=== PATIENT | male | born 1945 | race Caucasian/White ===

== ENCOUNTER 2016-12-31 12:02 | Inpatient (IN) | payer OTHER ==
[~2016-12-31] VITALS: Ht 172.7 cm; Wt 105.7 kg
--- NOTE | ~2016-12-31 | H ---
[facility] [place] [address] HISTORY AND PHYSICAL Name: CARMELO FUNG Room #: 305-P ADM IN M.R.#: [id number] Admission: 12/31/16 Attend Phys: Olvin Morelos Discharge: Date of : 45 Report #: [id number] THIS REPORT FOR: //name// CC: Yves Gonzales DATE OF SERVICE: 12/31/2016 CHIEF COMPLAINT: Testicular pain. HISTORY OF PRESENT ILLNESS: The patient is a 71-year-old gentleman who came in to the Emergency Room complaining of lower abdomen, pelvic and scrotal pain. Symptoms began about 1 day prior to admission and he felt symptoms were worse with a bowel movement or urination. He really was not having any fever, chills or nausea, vomiting. Through the Emergency Room evaluation, he was diagnosed with an acute appendicitis. He has been treated with IV antibiotics overnight and assessed by Dr. Robert as well as Dr. Graham regarding his scrotal pain. Dr. Rodríguez knows him well and has been following too. PAST MEDICAL HISTORY: Significant for cardiac arrest in 08/2015 with complicated acute renal failure, hyperkalemia, pulseless electrical activity. He required dialysis temporarily but that has cleared and now has been discontinued. He also has a history of paroxysmal atrial fibrillation and uses anticoagulation of Savaysa. He also has a history of diabetes type 2, osteoarthritis, lymphedema, prostate cancer treated previously with radiation and Lupron, gastric reflux. PAST SURGICAL HISTORY: As above. FAMILY HISTORY: There is no report of coronary artery disease. SOCIAL HISTORY: No chronic alcohol or tobacco use. He is , lives with his , he is retired. ALLERGIES: None. MEDICATIONS: Savaysa 30 mg, diltiazem 180 mg, aspirin 81 mg, atenolol 50 mg, flecainide 150 mg b.i.d., digoxin 0.125 mg, pravastatin 40 mg, Zantac 150 mg, Colace, Lasix 40 mg, Rapaflo 8 mg, Levemir 20 units at bedtime. REVIEW OF SYSTEMS: He denies headache, chest pain, shortness of breath, abdominal pain, nausea, vomiting, diarrhea, constipation, dysuria, syncope. PHYSICAL EXAMINATION: VITAL SIGNS: Temperature 36.6, pulse 51, respiration 20, blood pressure 132/53, O2 sat 95% on room air. GENERAL: He is awake and alert, in no distress. [address] [address] HISTORY AND PHYSICAL Name: CARMELO FUNG Room #: 305-P [facility] IN .R.#: [id number] Admission: 12/31/16 Attend Phys: Olvin Morelos Discharge: Date of : 45 Report #: [id number] HEAD AND NECK: Unremarkable. LUNGS: Clear. HEART: Irregular. ABDOMEN: Soft, normoactive bowel sounds. EXTREMITIES: No edema. NEUROLOGIC: Motor strength 5/5 throughout. He is alert and oriented. LABORATORY REVIEW: With normal white count, initial creatinine from ER is 1.4. Urinalysis was negative. Scrotal ultrasound was negative. CT abdomen and pelvis revealed acute appendicitis and colonic diverticulosis without inflammation. ASSESSMENT: 1. Acute diverticulitis. 2. Paroxysmal atrial fibrillation. 3. Chronic kidney disease, stage 3. 4. Diabetes type 2. PLAN: For now, he is being treated conservatively with IV antibiotics. General Surgery team is following him and developed a plan as he goes forward, but he may take an approach of IV antibiotic treatment at this time. Follow up lab data is pending today as well as tomorrow. <ELECTRONICALLY SIGNED> By: Nando Welch MD 01/01/17 1432 0829 1014 Nando Welch MD /nt
--- NOTE | ~2016-12-31 | HC ---
[facility] [place] [address] CONSULTATION Name: CARMELO FUNG Room #: 305-P [facility] IN M.R.#: [id number] Admission: 12/31/16 Attend Phys: Olvin Morelos Discharge: 01/03/17 Date of : 45 Report #: [id number] THIS REPORT FOR: //name// CC: Yves Gonzales HISTORY OF PRESENT ILLNESS: The patient is a 71-year-old male. He is known to me, followed by Dr. Pelon Gonzales. I saw him last fall, he has history of paroxysmal atrial fibrillation, longstanding. He did have an episode a couple of years ago with actually acute renal failure, hyperkalemia, PEA and temporary dialysis. Some of his care has at the [place]. Admitted today with some recurrent scrotal pain, pelvic pain and worse with bowel movements, urination. [place] to have an acute appendicitis. Cardiac arrest was back in 08/2015 due to the acute renal failure, this is resolved. Should clear up to clarify. He has been seen by hospitalist and Dr. Robert of surgery. He is anticoagulated on a novel agent Savaysa last dose was this morning. He denies chest pain or anginal complaints. He does not have documented coronary disease risk factors, however. He has been compliant with his medications. He has had no bleeding issues. MEDICATIONS: Have been disease, Savaysa 30 mg, diltiazem 180, baby aspirin, atenolol 50, flecainide 150 b.i.d., digoxin 0.125 and pravastatin 40, ranitidine, Colace, Lasix 40 and Rapaflo 8, also on some Levemir. PAST MEDICAL HISTORY: Positive for the PEA, cardiac arrest, diabetes, hypertension, chronic kidney disease, hypercholesterolemia, DJD, Agent Krebs and hepatitis A, history of lymphedema[facility], history of prostate cancer with prior radiation and Lupron, reflux, nasal reconstruction. FAMILY HISTORY: Both parents live in to their 80s, no premature coronary disease. SOCIAL HISTORY: Never tobacco user, social alcohol. Moderate caffeine. Children are alive and well. He is . He is retired. ALLERGIES: No known drug allergies. REVIEW OF SYSTEMS: Negative except for stated above and some nocturia with this recent intermittent constipation. PHYSICAL EXAMINATION: GENERAL: Pleasant, alert. VITAL SIGNS: Blood pressure 140/66, pulse is 65-70 and regular. HEENT: Eyes reveal xanthelasmas. Pharynx is clear. NECK: Shows preserved upstrokes without JVD or bruits. LUNGS: Clear. CARDIOVASCULAR: Regular rate and rhythm, S1, S2. There is no significant murmur or gallop. ABDOMEN: Tender in the right lower and midepigastric area. There is some [facility] [address] [place] [place] [address] CONSULTATION Name: CARMELO FUNG Room #: 305-P [facility] IN M.R.#: [id number] Admission: 12/31/16 Attend Phys: Olvin Morelos Discharge: 01/03/17 Date of : 45 Report #: [id number] questionable rebound. Bowel sounds are noted. There is some mild guarding. EXTREMITIES: Reveal some chronic lymphedema, I cannot palpate the distal pulses. NEUROLOGIC: Intact, nonfocal. MUSCULOSKELETAL: gross joint deformity. Generalized arthritic changes. LABORATORY DATA: H and H is 14 and 42, white cell count 8.3. Potassium 3.9 and creatinine 1.4. UA was negative. CT findings of the abdomen CT consistent with acute appendicitis, no abscess or free air. RECOMMENDATIONS: I agree with holding the novel agent. He is currently maintaining sinus rhythm. Could proceed within 24 hours of surgery if necessary. I believe that it will be treated with antibiotics and then possibly surgery with later this hospitalization or later date. His cardiovascular status is stable. Also, have a relatively recent nuclear stress test from the office, which was last year that was negative for ischemia. We will discuss with Surgery in the a.m. okay to proceed on anytime after 24 hours and from a novel agent so tomorrow afternoon, Wednesday afternoon or Wednesday morning would be fine. We will discuss with Dr. Robert the morning. Thank you for asking me to assist in this patient. <ELECTRONICALLY SIGNED> By: Rex Rodríguez MD, FACC 01/05/17 0921 [id number] 0720 Rex Rodríguez MD, FACC /nt
--- NOTE | ~2016-12-31 | HC ---
[facility] [place] [address] CONSULTATION Name: CARMELO FUNG Room #: 305-P ADM IN M.R.#: [id number] Admission: 12/31/16 Attend Phys: Olvin Morelos Discharge: Date of : 45 Report #: [id number] THIS REPORT FOR: //name// CC: Yves Gonzales DATE OF SERVICE: 12/31/2016 CHIEF COMPLAINT: Testicular pain. HISTORY OF PRESENT ILLNESS: The patient is a very pleasant 71-year-old male with history of lower abdominal and testicular pain, which seemed to be worsened with attempting to void. He reports that over the past week his lower abdomen had been uncomfortable, although not excruciating, but then over the past 24 hours he developed significant pain in the scrotum. He has a history of prostate cancer status post radiation therapy. He also has a penile implant with reservoir in place. He has extensive past medical history including diabetes mellitus, atrial fibrillation, previous cardiac arrest on Savaysa 30 mg daily. He last took this medication in the morning of December 31. In the Emergency Department, he was noted to have a normal white blood cell count, although a left shift of 77% was noted. CT scan of the abdomen and pelvis showed an enlarged inflamed appendix; no free air or free fluid was noted. The prostate was noted to be mildly enlarged. Urinalysis was essentially normal, although there was trace blood. He also underwent a scrotal ultrasound, which was unremarkable. General Surgery was consulted for appendicitis. PAST MEDICAL HISTORY: Positive for cardiac arrest in August 2015 with acute renal failure requiring dialysis for a period of time, hypokalemia at that time, pulseless electrical activity, history of paroxysmal atrial fibrillation on Savaysa, history of type 2 diabetes, although he does require insulin injections, osteoarthritis, lower extremity lymphedema, prostate cancer treated with radiation therapy and previous Lupron, history of gastroesophageal reflux disease. PAST SURGICAL HISTORY: As described above, no prior abdominal operations other than the penile implant. FAMILY HISTORY: Negative for coronary artery disease. SOCIAL HISTORY: Negative for tobacco, ETOH or drug use. ALLERGIES: No known drug allergies. MEDICATIONS: At home include diltiazem, aspirin, atenolol, Savaysa, flecainide, digoxin, pravastatin, Zantac, Colace, Lasix, Rapaflo, and Levemir. REVIEW OF SYSTEMS: CONSTITUTIONAL: Negative for fevers, chills or unwanted [facility] [address] [place] [address] CONSULTATION Name: CARMELO FUNG Room #: 305-P [facility] IN M.R.#: [id number] Admission: 12/31/16 Attend Phys: Olvin Morelos Discharge: Date of : 45 Report #: [id number] weight loss. HEENT: No dysphagia or odynophagia. OCULAR: No diplopia or visual change. RESPIRATORY: No productive cough, no hemoptysis. CARDIOVASCULAR: No chest pain, no palpitations, history of previous GA on Savaysa. GASTROINTESTINAL: Positive for lower abdominal pain, worse with voiding. GENITOURINARY: Positive for hesitancy and scrotal pain with attempting to void. MUSCULOSKELETAL: No back pain. Positive for lower extremity swelling consistent with known diagnosis of lymphedema with compression stockings in place. CUTANEOUS: Positive for easy bruising consistent with Savaysa anticoagulation. NEUROLOGIC: No focal weakness or numbness. PHYSICAL EXAMINATION: GENERAL: The patient is afebrile in no acute distress. He is normotensive. He does give appropriate history and he is in good spirits. HEENT: Head is atraumatic and normocephalic. Pupils are equally round and reactive. No icterus is appreciated. NECK: Supple. Oral cavity is clear. LUNGS: Clear to auscultation. HEART: Regular without murmur. No jugular venous distention. ABDOMEN: Soft and tender on deep palpation in the right lower quadrant. He did have some voluntary guarding upon aggressive deep palpation. No peritonitis per se. No abdominal surgical scars or hernias appreciated. EXTREMITIES: With lower extremity edema and compression stockings in place, consistent with known diagnosis of lymphedema. The patient moves all extremities without focal weakness or numbness. PSYCHIATRIC: Normal mood and affect. LABORATORY DATA: Reviewed. Upon admission in the Emergency Department yesterday, complete blood count showed a white count of 8.3, hemoglobin of 14.8, platelets of 144. Basic metabolic profile of 136, potassium 3.9, BUN of 21, creatinine 1.4. Testicular ultrasound in the Emergency Department showed normal scrotal ultrasound, symmetric blood flow to each testicle, epididymis symmetric bilateral. INR of 1.2. Chest x-ray showed no acute cardiopulmonary abnormalities. CT scan of the abdomen and pelvis without contrast reviewed with Radiology. This demonstrated mild bilateral perinephric fat stranding; small bowel was unremarkable, dilated, thick walled appendix measuring up to 6 cm in length and 2.5 cm in width maximally. Inflammatory stranding was noted. No free air or free fluid appreciated. Penile pump and reservoir noted. Prostrate gland mildly enlarged. No inguinal hernias, multiple level degenerative spinal joint disease. IMPRESSION AND PLAN: 1. 71-year-old male patient with extensive past medical history and previous cardiac arrest in August of 2015 on chronic Savaysa therapy as well as aspirin therapy. No shannon peritonitis at this time and no sign of sepsis or septic shock. Based upon history, this process appears to have been ongoing for 5 to 6 days prior to admission and there does not appear to be periappendiceal fluid or air, which would indicate perforation. Given the patient's anticoagulation status, he would not be an optimal surgical candidate and would be at significant risk for perioperative hemorrhage. This [facility] [address] [place] [address] CONSULTATION Name: ANTONIETACARMELO VILLARREAL Room #: 305-P ADM IN M.R.#: [id number] Admission: 12/31/16 Attend Phys: Olvin Morelos Discharge: Date of : 45 Report #: [id number] is especially true in light of the multiple day course of this process, which would increase inflammation and early adhesions formation in the operative field. 2. At this time, we will begin IV antibiotic therapy with Zosyn and Flagyl. We will hold patient's Savaysa therapy per chance his condition worsens and he requires urgent appendectomy. 3. We will continue to follow the patient closely with serial abdominal examinations. At the minimum, the patient will need to wait 48 hours up from his last dose of Savaysa, which was morning prior to operative intervention. 4. It is possible that antibiotic therapy alone may be sufficient to treat this patient, as he already appears to be mounting a good immune response to his appendicitis. 5. Should the patient's pain and symptoms resolve with antibiotic therapy alone, will discuss at a later date whether interval appendectomy would be applicable for this patient, given his extensive medical history. Consultation very much appreciated. We will continue to follow closely with serial abdominal examinations and make further recommendations based upon his clinical status, laboratory and radiographic findings. <ELECTRONICALLY SIGNED> By: Bruce Robert MD 01/02/17 1113 1603 2342 Bruce Robert MD /nt
[~2016-12-31 12:02] MED LIST: ASPIRIN EC81 M1 PO; BUDEPRION SR150 MG PO; BUPROPION HCL150 MG PO; CARDIZEM CD180 MG PO; FLECAINIDE ACET50 M1 PO; FLOMAX0.4 MG PO; HCTZ PO; HYDROCODON-ACE1 EACH PO; HYTRIN10 MG PO; LANOXIN 0.120.125 M1 PO; LANTUS SUBQ; LASIX 40 MG TAB40 M2 PO; LEVEMIR SUBQ; LISINOPRIL PO; LORTAB 5-500 T1 EAC1 PO; MIRALAX17 GM PO; NOVOLOG100 UNIT/1 SUBQ; OMEPRAZOLE10 MG PO; PRAVACHOL PO; PRAVACHOL40 MG PO; RANITIDINE PO; SAVAYSA30 MG PO; SENNA8.6 MG PO; TENORMIN25 MG PO; TENORMIN50 MG PO; ZANTAC 150MG T150 MG PO; ZOCOR40 MG PO; [UNRECOGNIZED DRUG - CODE]
[2016-12-31 12:07] VITALS: BP 146/60
[2016-12-31] MEDS ORDERED: COLACE100 MG PO (12:12)
[2016-12-31] MEDS ORDERED: LASIX 40 MG TAB40 M2 PO (12:13)
[2016-12-31] MEDS ORDERED: FLOVENT HFA 1110 MCG INH (12:13)
[2016-12-31] MEDS ORDERED: RAPAFLO8 MG PO (12:16)
[2016-12-31 12:28] LABS: URINE BILIRUBIN NEGATIVE (Negative); URINE BLOOD TRACE (Negative); URINE COLOR YELLOW; URINE GLUCOSE-RANDOM* NEGATIVE (Negative); URINE KETONES NEGATIVE (Negative); URINE NITRITE NEGATIVE (Negative); URINE PROTEIN (DIPSTICK) NEGATIVE (Negative); URINE SPECIFIC GRAVITY 1.015 (1.003-1.035); URINE UROBILINOGEN 0.2 E.U./dl (0.2-1.0)
[2016-12-31 12:55] LABS: ABSOLUTE NEUTROPHILS 6.4 thou/uL (1.4-8.2); BASOPHILS 0.5 % (0.0-2.0); EOSINOPHILS 1.7 % (0.0-3.0); HEMATOCRIT 42.3 % (42.0-52.0); HEMOGLOBIN 14.8 gm/dL (14.0-18.0); MCH 27.1 pg (26.0-34.0); MCV 77.5 fL (80.0-100.0); MONOCYTES 11.1 % (1.0-8.0); PLATELET COUNT 144 thou/uL (150-400); POLYS 76.7 % (36.0-66.0); RBC 5.46 mil/uL (4.50-6.00); RDW 15.5 % (10.5-14.5); WBC 8.3 thou/uL (4.0-11.0)
[2016-12-31 12:58] LABS: MANUAL DIFF NO
[2016-12-31 13:06] LABS: CALCIUM 7.9 mg/dL (8.5-10.1); CREATININE 1.4 mg/dL (0.7-1.3); POTASSIUM 3.9 mmol/L (3.5-5.1)
[2016-12-31 14:32] LABS: INR 1.2; PROTIME 12.4 Seconds (9.3-11.4)
[2016-12-31 15:00] VITALS: BP 130/49
[2016-12-31 15:28] VITALS: BP 136/69
[2016-12-31 17:03] VITALS: BP 136/69
[2016-12-31 20:00] VITALS: BP 146/56
[2017-01-01] VITALS: BP 144/66
[2017-01-01 04:00] VITALS: BP 131/63
[2017-01-01 08:20] VITALS: BP 122/53
[2017-01-01 09:06] LABS: HEMATOCRIT 44.5 % (42.0-52.0); HEMOGLOBIN 14.9 gm/dL (14.0-18.0); MCH 26.3 pg (26.0-34.0); MCHC 33.4 g/dL (28.0-37.0); MCV 78.8 fL (80.0-100.0); RBC 5.64 mil/uL (4.50-6.00); RDW 15.9 % (10.5-14.5); WBC 8.6 thou/uL (4.0-11.0)
[2017-01-01 09:18] LABS: CALCIUM 7.9 mg/dL (8.5-10.1); CREATININE 1.3 mg/dL (0.7-1.3); MAGNESIUM 1.8 mg/dL (1.8-2.4); PHOSPHORUS 3.1 mg/dL (2.5-4.9); POTASSIUM 4.4 mmol/L (3.5-5.1)
[2017-01-01 15:50] VITALS: BP 122/52
[2017-01-01 20:25] VITALS: BP 140/54
[2017-01-02 04:26] VITALS: BP 143/62
[2017-01-02 04:52] LABS: CREATININE 1.3 mg/dL (0.7-1.3); POTASSIUM 3.9 mmol/L (3.5-5.1)
[2017-01-02 05:01] LABS: HEMATOCRIT 42.6 % (42.0-52.0); HEMOGLOBIN 14.4 gm/dL (14.0-18.0); MCH 26.3 pg (26.0-34.0); MCHC 33.9 g/dL (28.0-37.0); MCV 77.5 fL (80.0-100.0); PLATELET COUNT 125 thou/uL (150-400); RBC 5.49 mil/uL (4.50-6.00); RDW 16.3 % (10.5-14.5); WBC 7.4 thou/uL (4.0-11.0)
[2017-01-02 05:11] LABS: MANUAL DIFF YES
[2017-01-02 07:30] LABS: ABSOLUTE NEUTROPHILS 5.6 thou/uL (1.4-8.2); TOTAL CELL COUNT 100
[2017-01-02 07:31] LABS: ANISOCYTOSIS 1+
[2017-01-02 08:13] VITALS: BP 127/68
[2017-01-02 15:31] VITALS: BP 124/56
[2017-01-02 19:55] VITALS: BP 125/57
[2017-01-03 04:05] VITALS: BP 142/65
[2017-01-03 07:55] VITALS: BP 111/64
[2017-01-03 13:03] VITALS: BP 111/64
== END 2017-01-03 13:58 | disposition home or self-care (01) | DRG 393 ==
LOC: ER 12:02 → EROBS 14:23 → 3N 14:23
PROVIDERS: Internal Medicine Geriatric Medicine; Otolaryngology; Physician Assistant
DX: K35.80 Unspecified acute appendicitis (principal); N17.0 Acute kidney failure with tubular necrosis; K57.92 Diverticulitis of intestine, part unspecified, without perforation or abscess without bleeding; K21.9 Gastro-esophageal reflux disease without esophagitis; Z96.1 Presence of intraocular lens; E66.9 Obesity, unspecified; Z68.35 Body mass index [BMI] 35.0-35.9, adult; E78.5 Hyperlipidemia, unspecified; R33.9 Retention of urine, unspecified; M19.90 Unspecified osteoarthritis, unspecified site; Z85.46 Personal history of malignant neoplasm of prostate; I12.9 Hypertensive chronic kidney disease with stage 1 through stage 4 chronic kidney disease, or unspecified chronic kidney disease; E11.22 Type 2 diabetes mellitus with diabetic chronic kidney disease; N18.3 Chronic kidney disease, stage 3 (moderate); N40.0 Benign prostatic hyperplasia without lower urinary tract symptoms; E87.5 Hyperkalemia; E78.00 Pure hypercholesterolemia, unspecified; I65.29 Occlusion and stenosis of unspecified carotid artery; I48.0 Paroxysmal atrial fibrillation; Z86.74 Personal history of sudden cardiac arrest; Z79.82 Long term (current) use of aspirin; Z98.49 Cataract extraction status, unspecified eye; Z79.899 Other long term (current) drug therapy
CPT/HCPCS: 10096

== ENCOUNTER 2018-10-15 12:00 | Observation (INO) | payer OTHER ==
[~2018-10-15] VITALS: Ht 172.7 cm; Wt 103.0 kg
--- NOTE | ~2018-10-15 | D ---
[facility] [place] [address] DISCHARGE SUMMARY Name: CARMELO FUNG Room #: 210-P [facility] Mckenzie Lazo#: [id number] Admission: 10/15/18 Attend Phys: Nando Welch MD Discharge: 10/16/18 Date of : 45 Report #: [id number] THIS REPORT FOR: //name// CC: Yves Welch DATE OF SERVICE: 10/16/2018 FINAL DIAGNOSIS: Atrial fibrillation. HOSPITAL COURSE: The patient admitted with chest pain. Cardiac enzymes are negative. Atrial fibrillation rate was controlled. Usual home medications were continued. Dr. Hernandez saw him in consultation. At this time, there were no plans for inpatient invasive cardiac workup. 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 He resumes all usual home medications. By: 1045 1057 Nando Welch MD /nt
[~2018-10-15 12:00] MED LIST changes: +COLACE100 MG PO; +FLOVENT HFA 1110 MCG INH; +RAPAFLO8 MG PO
[2018-10-15 12:06] VITALS: BP 132/91
[2018-10-15 12:59] LABS: ABSOLUTE NEUTROPHILS 5.2 thou/uL (1.4-8.2); BASOPHILS 0.8 % (0.0-2.0); EOSINOPHILS 2.2 % (0.0-3.0); HEMATOCRIT 42.3 % (42.0-52.0); HEMOGLOBIN 14.6 gm/dL (14.0-18.0); LYMPHOCYTES 11.9 % (24.0-44.0); MCH 27.7 pg (26.0-34.0); MCHC 34.5 g/dL (28.0-37.0); MCV 80.3 fL (80.0-100.0); MONOCYTES 10.3 % (1.0-8.0); PLATELET COUNT 126 thou/uL (150-400); POLYS 74.8 % (36.0-66.0); RBC 5.27 mil/uL (4.50-6.00); RDW 16.3 % (10.5-14.5)
[2018-10-15 13:03] LABS: ANION GAP 10 mmol/L (7-16); BUN 28 mg/dL (7-18); CALCIUM 8.8 mg/dL (8.5-10.1); CHLORIDE 102 mmol/L (98-107); CO2 25 mmol/L (21-32); CREATININE 1.5 mg/dL (0.7-1.3); GLUCOSE 173 mg/dL (74-106); POTASSIUM 4.5 mmol/L (3.5-5.1); SODIUM 137 mmol/L (136-145)
[2018-10-15 13:12] LABS: TROPONIN-I <0.06 ng/mL (<0.06)
[2018-10-15] MEDS ORDERED: FLECAINIDE ACE150 MG PO (13:51)
[2018-10-15] MEDS ORDERED: DILTIAZEM 24HR180 M1 PO (13:53)
[2018-10-15] MEDS ORDERED: GLYXAMBI 10 MG1 EACH PO (13:53)
[2018-10-15] MEDS ORDERED: WELLBUTRIN 75 M75 M1 PO (13:54)
[2018-10-15] MEDS ORDERED: DIGOXIN125 MCG PO (13:55)
[2018-10-15] MEDS ORDERED: COZAAR 25 MG TA25 M1 PO (13:55)
[2018-10-15] MEDS ORDERED: SAVAYSA60 MG PO (13:56)
[2018-10-15] MEDS ORDERED: COLACE100 MG PO (13:57)
[2018-10-15 14:33] VITALS: BP 116/49
[2018-10-15 14:41] VITALS: BP 116/49
[2018-10-15 20:00] VITALS: BP 137/49
[2018-10-15 23:20] VITALS: BP 124/61
[2018-10-16 04:06] VITALS: BP 127/65
--- NOTE | 2018-10-16 05:54 | NUR ---
ASSUME CARE 1900. PT/VITALS STABLE. DENIES ANY PAIN. UP AD REENA. ASSESSMENT CHARTED. PROGRESSIGN WELL WITH POC. PLAN IS FOR CARDIOLOGY TO SEE PT AND DISCUSS FURTHER POC. WILL CONTINUE TO FOLLOW WITH POC
[2018-10-16 08:25] VITALS: BP 142/68
--- NOTE | 2018-10-16 10:55 | EKG ---
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: : 1945 Requested By: Lorenzo White Order Number: [id number] MD: Lincoln Hernandez Measurements Intervals [place] Rate: 61 P: 65 WA: 219 QRS: 51 QRSD: 116 T: 41 QT: 427 QTc: 430 Interpretive Statements Sinus rhythm Borderline prolonged WA interval Nonspecific intraventricular conduction delay Nonspecific ST segment abnormalities Compared to ECG 08/06/2017 19:27:10 Intraventricular conduction delay now present Electronically Signed On 10-16-2018 10:55:23 CARDING SUPERVISOR by Lincoln Hernandez [email or web address] <ELECTRONICALLY SIGNED> By: Lincoln Hernandez MD 10/16/18 1055 1209 1209 MD NAT Marrero
[2018-10-16 13:10] VITALS: BP 142/68
--- NOTE | 2018-10-16 14:27 | NUR ---
ASSUMED CARE OF PT AT 0700. PT A&OX4, UP AD REENA. PT VITALS WITHIN NORMAL LIMITS EXCEPT BLOOD PRESSURE SLIGHTLY HIGH AND SCHEDULE BLOOD PRESSURE MEDS GIVEN. PT DENIED CHEST PAIN OR DISCOMFORT. PT WAS SINUS RHYTHM ON TELEMETRY. CARDIOLOGY OKAY WITH DISCHARGE AND DR. AYALA NOTIFIED AND PUT IN DISCHARGE ORDERS. IV AND TELE REMOVED. PT COMMUNICATED UNDERSTANDING OF ALL DISCHARGE ORDERS/MEDS AND FOLLOW UP APPTS. SON WAS PRESENT TO DRIVE PT HOME.
--- NOTE | 2018-10-17 07:26 | HC ---
[facility] [place] [address] CONSULTATION Name: CARMELO FUNG Room #: 210-P [facility] MCarlo#: [id number] Admission: 10/15/18 Attend Phys: Nando Welch MD Discharge: 10/16/18 Date of : 45 Report #: [id number] THIS REPORT FOR: //name// CC: Yves Welch DATE OF SERVICE: 10/16/2018 TYPE OF REPORT: Cardiology consultation. INDICATION: Chest pain. HISTORY OF PRESENT ILLNESS: This is a 73-year-old gentleman with a history of paroxysmal atrial fibrillation, diabetes mellitus, hypertension, presenting with chest pain. Yesterday morning, he described a sharp pain in the left chest area, nonradiating. He did not have any dyspnea or diaphoresis. The pain was worse with palpation over the area. It persisted for several hours and he was admitted to the hospital. There is no recent history of fever, chills, cough, nausea or diarrhea. Serial troponin levels are negative and the ECG is unremarkable. PAST MEDICAL HISTORY: Paroxysmal atrial fibrillation, history of cardiac arrest 3 years ago attributed to renal failure and hyperkalemia, diabetes mellitus, hypertension, hypercholesterolemia and GERD. ALLERGIES: None. MEDICATIONS: At home include diltiazem, aspirin, flecainide, digoxin, Pravachol and Savaysa. SOCIAL HISTORY: Denies tobacco use. FAMILY HISTORY: Negative for premature CAD. REVIEW OF SYSTEMS: A full 10-point review of systems performed. Only the pertinent positives and negatives are described in the HPI. PHYSICAL EXAMINATION: VITAL SIGNS: Blood pressure is 140/60 and heart rate is 60 beats per minute. GENERAL APPEARANCE: This is a mildly overweight male, in no acute distress. HEENT: Normocephalic and atraumatic. Oral mucosa moist. NECK: Supple. LUNGS: CTA. CARDIAC: Regular rate and rhythm. S1 and S2 positive. ABDOMEN: Soft and nontender. EXTREMITIES: No cyanosis. Trace edema. [facility] [address] [place] [address] CONSULTATION Name: CARMELO FUNG Room #: [facility] M.R.#: [id number] Admission: 10/15/18 Attend Phys: Nando Welch MD Discharge: 10/16/18 Date of : 45 Report #: [id number] RADIOLOGICAL DATA: ECG reveals sinus rhythm, nonspecific IVCD and nonspecific ST-segment abnormality. LABORATORY VALUES: Troponin is negative x 2. White count 7.0 and hemoglobin is 14.6. Creatinine is 1.5. ASSESSMENT AND PLAN: 1. Atypical chest pain, the troponin levels are negative and his symptoms have resolved. By his history, probably related to musculoskeletal etiology. He remained stable for discharge today. 2. Paroxysmal atrial fibrillation, remains in sinus rhythm, continue with his medications. He will follow up with Dr. Rodríguez upon discharge. 3. Hypertension, continue with medications. 4. Diabetes mellitus, continue with his regimen. <ELECTRONICALLY SIGNED> By: Lincoln Hernandez MD 10/17/18 0726 1123 2051 Lincoln Hernandez MD /nt
--- NOTE | 2018-10-18 10:44 | H ---
[facility] [place] [address] HISTORY AND PHYSICAL Name: CARMELO FUNG Room #: 210-P [facility] M.Zaida#: [id number] Admission: 10/15/18 Attend Phys: Nando Welch MD Discharge: 10/16/18 Date of : 45 Report #: [id number] THIS REPORT FOR: //name// CC: Yves Welch DATE OF SERVICE: 10/15/2018 CHIEF COMPLAINT: Chest pain. HISTORY OF PRESENT ILLNESS: The patient is a 73-year-old gentleman with heart disease, came to the Emergency Room with chest pain. Symptoms began at about 10:00 yesterday morning and occurred while at rest. He described a dull left-sided chest pain. He denied any shortness of breath, nausea, vomiting or diaphoresis. At the time he presented to the Emergency Room at about 1:30, he said his pain has subsided. PAST MEDICAL HISTORY: Atrial fibrillation. He has had cardiac arrest 3 years ago, diabetes type 2, dyslipidemia, hypertension, remote hepatitis A, GERD. PAST SURGICAL HISTORY: Lymphedema, vein stripping, appendectomy. FAMILY HISTORY: Noncontributory. SOCIAL HISTORY: No chronic alcohol or tobacco use. He is and lives at home. ALLERGIES: None. MEDICATIONS: Diltiazem, aspirin, flecainide, bupropion, digoxin, pravastatin, Zantac, NovoLog, Levemir, Tenormin, Flonase, Colace, Lasix, Rapaflo. Glyxambi, losartan, Savaysa. REVIEW OF SYSTEMS: Denies headache, chest pain, shortness of breath, abdominal pain, nausea, vomiting, diarrhea, constipation, dysuria, syncope. OBJECTIVE: VITAL SIGNS: Temperature 36.5, pulse 64, respirations 18, blood pressure 127/65, O2 sat 96% on room air. GENERAL: He is awake and alert, in no distress. LUNGS: Clear. HEART: Regular. ABDOMEN: Soft, normoactive bowel sounds. EXTREMITIES: No edema. NEUROLOGIC: Intact. [facility] [address] [place] [address] HISTORY AND PHYSICAL Name: CARMELO FUNG Room #: 210-[facility] M.R.#: [id number] Admission: 10/15/18 Attend Phys: Nando Welch MD Discharge: 10/16/18 Date of : 45 Report #: [id number] LABORATORY DATA: Reviewed. Troponin is 0.06. ASSESSMENT: 1. Chest pain. 2. Chronic atrial fibrillation. 3. Hypertension. 4. Diabetes type 2. PLAN: Repeat his troponin and have Dr. Hernandez see him in consultation. It sounds like he has a routine visit with Dr. Rodríguez scheduled in the office later this month. He reports that stress testing has always been negative in the past. If no indication for invasive inpatient cardiac testing currently, then anticipate early discharge later today. <ELECTRONICALLY SIGNED> By: Nando Welch MD 10/18/18 1044 0830 0942 Nando Welch MD /estefania
== END 2018-10-16 13:20 | disposition home or self-care (01) ==
LOC: ER 12:00 → EROBS 14:13 → 2N 14:55
PROVIDERS: Emergency Medicine; ADMIT Internal Medicine Geriatric Medicine
DX: I48.0 Paroxysmal atrial fibrillation (principal); I25.10 Atherosclerotic heart disease of native coronary artery without angina pectoris; I48.92 Unspecified atrial flutter; E11.9 Type 2 diabetes mellitus without complications; I10 Essential (primary) hypertension; E78.5 Hyperlipidemia, unspecified; K21.9 Gastro-esophageal reflux disease without esophagitis; Z79.82 Long term (current) use of aspirin; Z79.4 Long term (current) use of insulin; Z79.899 Other long term (current) drug therapy; Z90.49 Acquired absence of other specified parts of digestive tract

== ENCOUNTER 2018-12-05 18:38 | Inpatient (IN) | payer OTHER ==
[~2018-12-05] VITALS: Ht 172.7 cm; Wt 100.8 kg
[~2018-12-05 18:38] MED LIST changes: +COZAAR 25 MG TA25 M1 PO; +DIGOXIN125 MCG PO; +DILTIAZEM 24HR180 M1 PO; +FLECAINIDE ACE150 MG PO; +GLYXAMBI 10 MG1 EACH PO; +SAVAYSA60 MG PO; +WELLBUTRIN 75 M75 M1 PO
[2018-12-05 18:39] VITALS: BP 104/24
[2018-12-05] MEDS ORDERED: OZEMPIC0.25 MG/0. SUBQ (19:38)
[2018-12-05 19:41] LABS: ABSOLUTE NEUTROPHILS 4.5 thou/uL (1.4-8.2); BASOPHILS 0.5 % (0.0-2.0); EOSINOPHILS 0.3 % (0.0-3.0); LYMPHOCYTES 12.7 % (24.0-44.0); MCH 23.9 pg (26.0-34.0); MCHC 31.6 g/dL (28.0-37.0); MCV 75.6 fL (80.0-100.0); MONOCYTES 11.5 % (1.0-8.0); PLATELET COUNT 130 thou/uL (150-400); RBC 2.13 mil/uL (4.50-6.00)
[2018-12-05 19:43] LABS: HEMATOCRIT 16.1 % (42.0-52.0)
[2018-12-05 19:44] LABS: HEMOGLOBIN 5.1 gm/dL (14.0-18.0)
[2018-12-05 19:45] LABS: ANION GAP 11 mmol/L (7-16); BUN 39 mg/dL (7-18); CALCIUM 8.2 mg/dL (8.5-10.1); CHLORIDE 105 mmol/L (98-107); CO2 26 mmol/L (21-32); CREATININE 1.7 mg/dL (0.7-1.3); GLUCOSE 180 mg/dL (74-106); POTASSIUM 3.4 mmol/L (3.5-5.1); SODIUM 142 mmol/L (136-145)
[2018-12-05 19:53] LABS: ALBUMIN 2.9 g/dL (3.4-5.0); SGOT 9 U/L (15-37); SGPT 16 U/L (30-65); TOTAL BILIRUBIN 0.2 mg/dL (<0.1-1.0); TOTAL PROTEIN 5.7 g/dL (6.4-8.2); TROPONIN-I <0.06 ng/mL (<0.06)
[2018-12-05 19:54] LABS: APTT 26.4 Seconds (24.5-32.8); INR 1.2; PROTIME 12.5 Seconds (9.3-11.4)
[2018-12-05 21:01] VITALS: BP 115/37; BP 118/39; BP 127/44
[2018-12-05] MEDS ORDERED: AMOX TR-K CLV1 EAC4 PO (21:21)
--- NOTE | 2018-12-05 23:35 | NUR ---
ATTEMPTED TO CALL REPORT. NURSE BUSY AT THIS TIME.
[2018-12-05 23:53] VITALS: BP 120/35
[2018-12-06] VITALS (16 sets, daily range): BP systolic 117–143; BP diastolic 33–58
[2018-12-06 06:18] LABS: HEMATOCRIT 20.7 % (42.0-52.0); HEMOGLOBIN 6.8 gm/dL (14.0-18.0); MCH 25.7 pg (26.0-34.0); MCHC 32.7 g/dL (28.0-37.0); MCV 78.6 fL (80.0-100.0); RBC 2.64 mil/uL (4.50-6.00); RDW 17.8 % (10.5-14.5)
--- NOTE | 2018-12-06 08:09 | NUR ---
RECEIVED PT TO ICU 237. VSS. MONITOR SHOWS SR. 1 UNIT OF PRBC INFUSED IN ICU. NO S/S OF BLEEDING. NOTIFIED DR GUILLORY OF HGB 6.8. ORDERS RECEIVED. PT VOIDS IN SMALL FREQ AMTS. REMAINS NPO. DENIES ANY ABD PAIN. CONTINUE PLAN OF CARE
--- NOTE | 2018-12-06 08:31 | EKG ---
[address] [address] ELECTROCARDIOGRAM REPORT Name: ANTONIETACARMELO PIEDRA Room #: 237-P ADM IN M.R.#: [id number] ������������������ Admission: 12/05/18 ������������������ Attend Phys: Nando Welch MD Discharge: ������������������ Date of : 45 Report #: [id number] ����������������������������������������������������������������� [id number] THIS REPORT FOR: //name// [facility] ED Test Date: 2018-12-05 Test Time: 19:45:54 Pat Name: CARMELO FUNG Department: Room: 237 Gender: M Research Assistant: ARMAND : 1945 Requested By: Sarahi Yan Order Number: [id number] MD: Stan Donaldson Measurements Intervals [place] Rate: 70 P: 14 MD: 65 QRS: 36 QRSD: 115 T: 190 QT: 378 QTc: 408 Interpretive Statements Sinus rhythm Short MD interval Nonspecific intraventricular conduction delay Abnormal T, consider ischemia, lateral leads Compared to ECG 10/15/2018 12:09:56 Short MD interval now present T-wave abnormality now present Possible ischemia now present Electronically Signed On 12-06-2018 8:31:35 CDT by Stan Donaldson [email or web address] ��������������������������������������������� <ELECTRONICALLY SIGNED> ���������������������������������������� By: Stan Donaldson MD ��������������������������������������������� 12/06/18 0831 44 44 Stan Donaldson MD /EPI
[2018-12-06 12:18] LABS: HEMATOCRIT 24.4 % (42.0-52.0); HEMOGLOBIN 8.1 gm/dL (14.0-18.0)
--- NOTE | 2018-12-06 13:01 | NUR ---
PATIENT REMAINS A&O X 4, PLEASANT AND COOPERATIVE WITH CARES. DENIES PAIN. DENIES NAUSEA OR VOMITING. PATIENT HAS NO ACTIVE SIGNS OF BLEEDING. PATIENT STATES THAT HIS STOOLS HAVE BEEN A BIT DARKER OF A BROWN FOR THE PAST TWO WEEKS BUT HAS NOT SEEN ANY BRIGHT RED BLOOD. PATIENT TO GO FOR EGD THIS MORNING. PATIENT WAS GIVEN 1 UNIT OF PRBC ON MY SHIFT AND PATIENT TOLERATED IT WELL. HGB UP TO 8.1 NOW. AT BEDSIDE AND CONCERNED THAT THE PATIENT IS NOT GETTING HIS ANTI-ARRHYTHMIC. DR AYALA SPOKE TO THE ABOUT THIS CONCERN. PATIENT LEFT FOR EGD AT 1225. WILL CONTINUE TO MONITOR AND CARE PER PLAN OF CARE.
--- NOTE | 2018-12-06 13:23 | H ---
[facility] [place] [address] HISTORY AND PHYSICAL Name: CARMELO FUNG Room #: 237-P ADM IN M.R.#: [id number] Admission: 12/05/18 ������������������ Attend Phys: Nando Welch MD Discharge: ������������������ Date of : 45 Report #: [id number] THIS REPORT FOR: //name// CC: Baldev Welch DATE OF SERVICE: 12/05/2018 CHIEF COMPLAINT: Weakness and dark stools. HISTORY OF PRESENT ILLNESS: The patient is a 73-year-old gentleman admitted through the Emergency Room with worsening weakness and dizziness. Symptoms have been progressing for about 5 days. He said over the last week or so, he has noted "dark" stools. He said they were brown to black at times, but no bright red blood; however, in the last few days, he has felt weaker and dizzy. He apparently had a lab work through the office with hemoglobin of 5.3 and was directed to the Emergency Room. He does take Savaysa anticoagulation for history of atrial fibrillation; however, he denies any evidence of bright red blood in stool or any hematemesis. PAST MEDICAL HISTORY: Diabetes type 2, insulin requiring; GERD; prostate cancer, he has completed radiation and takes Lupron; bilateral lymphedema; obesity; dyslipidemia; hypertension; remote hepatitis A; coronary artery disease; atrial fibrillation; he had cardiac arrest in 2016. FAMILY HISTORY: Unknown. SOCIAL HISTORY: He is , lives with his . No chronic alcohol or tobacco use. ALLERGIES: None. MEDICATIONS: Atenolol 25 mg, Cardizem-CD 180 mg, aspirin 81 mg, flecainide 150 mg b.i.d., bupropion SR 150 mg b.i.d., digoxin 0.125 mg, pravastatin 40 mg, Zantac 150 mg, Flovent inhaler, NovoLog 20 units with meals, Levemir 32 units twice a day, Lasix 40 mg, Rapaflo 8 mg, linagliptin 10 mg, losartan 25 mg, Savaysa 60 mg, Colace, Ozempic 5 mg subQ weekly for diabetes. REVIEW OF SYSTEMS: He denies headache, chest pain, shortness of breath, abdominal pain, nausea, vomiting, diarrhea, constipation, dysuria, syncope. OBJECTIVE: VITAL SIGNS: Temperature 36.4, pulse 75, respirations 16, blood pressure 118/44, O2 sat 99% on room air. GENERAL: He is awake and alert, in no distress. [facility] [address] [place] [address] HISTORY AND PHYSICAL Name: CARMELO FUNG Room #: 237-P [facility] IN M.R.#: [id number] Admission: 12/05/18 ������������������ Attend Phys: Nando Welch MD Discharge: ������������������ Date of : 45 Report #: [id number] HEAD AND NECK: Unremarkable. LUNGS: Clear. HEART: Irregular. ABDOMEN: Soft, normoactive bowel sounds. No rebound or guarding. EXTREMITIES: No edema. NEUROLOGIC: Motor strength 4/5 throughout. LABORATORY DATA: Hemoglobin 6.8, MCV is 78, is receiving a second unit of blood. Creatinine 1.7. ASSESSMENT: 1. Acute gastrointestinal bleed. 2. Acute blood loss due to gastrointestinal source. 3. Atrial fibrillation. 4. Chronic anticoagulation. 5. Diabetes type 2. 6. Moderate protein-calorie malnutrition, albumin 2.9. PLAN: He is kept n.p.o. for now and we will hold all his home medications including anticoagulation and aspirin therapy. Gastrointestinal Service has been consulted for consideration of endoscopy with possible upper gastrointestinal bleed as a source. ��������������������������������������������� <ELECTRONICALLY SIGNED> ���������������������������������������� By: Nando Welch MD ��������������������������������������������� 12/06/18 1323 0916 0941 Nando Welch MD /nt
[2018-12-06 18:09] LABS: HEMATOCRIT 23.3 % (42.0-52.0); HEMOGLOBIN 7.4 gm/dL (14.0-18.0)
[2018-12-07] VITALS (26 sets, daily range): BP systolic 94–159; BP diastolic 44–88
[2018-12-07 00:12] LABS: HEMATOCRIT 23.5 % (42.0-52.0); HEMOGLOBIN 7.5 gm/dL (14.0-18.0)
--- NOTE | 2018-12-07 05:43 | NUR ---
ASSESSMENT DOCUMENTED,PT RESTING IN NO ACUTE DISTRESS.VSS.SR ON MONITOR.PT COMPLETED BOWEL PREP W/O RESULTS.NOTIFIED GI DR,ORDERS GIVEN TO GIVE ENEMA AND DULCOLAX PILLS.ENEMA GIVEN WITH INSTANT RESULTS.PT PASSING BALLS OF STOOLS AND LIQUIDY,BLACK IN COLOR.SKIN VERY PALE.KEPT NPO AFTER MIDNOC.SBA TO BSC.PT C/O LOWER BELLY CRAMOING PAINS.NO OTHER CONCERNS NOTED.POC IS TO HAVE COLONOSCOPY TODAY.WILL CONT TO MONITOR PER POC.
[2018-12-07 06:50] LABS: CALCIUM 7.7 mg/dL (8.5-10.1); CREATININE 1.1 mg/dL (0.7-1.3); POTASSIUM 4.2 mmol/L (3.5-5.1)
--- NOTE | 2018-12-07 08:54 | NUR ---
500 CC TAP WATER ENEMA GIVEN. LIQUID DARK GREEN/BROWN STOOL AFTER ENEMA. THIS IS SECOND TAP WATER ENEMA. 1ST GIVEN BY PREVIOUS SHIFT.
[2018-12-07 17:16] LABS: HEMATOCRIT 24.6 % (42.0-52.0); HEMOGLOBIN 7.9 gm/dL (14.0-18.0)
--- NOTE | 2018-12-07 17:36 | NUR ---
PT HAS HAD 5 SEMI LIQUID, DARK GREEN/DARK BROWN STOOLS TODAY. AT BEGINNING OF SHIFT PT C/O ABD PAIN BUT AFTER STOOLS, PT STATES NO MORE PAIN. PT HAD BOWEL PREP YESTERDAY AND WAS RESTARTED ON BOWEL PREP THIS AFTERNOON. PT IS TOLERATING MIRALAX WITHOUT ANY PROBLEMS. PT GETS UP TO BEDSIDE COMMODE WITH 1 ASSIST. PT HAS PPI INFUSING ORDERED. PT IS ON CLEAR LIQUID DIET UNTIL MIDNIGHT. WILL CONTINUE TO MONITOR PT.
[2018-12-08] VITALS (8 sets, daily range): BP systolic 117–150; BP diastolic 35–56
[2018-12-08 01:50] LABS: HEMATOCRIT 25.6 % (42.0-52.0)
--- NOTE | 2018-12-08 01:59 | NUR ---
ASSUMED CARE OF PT AT 1900. PT ALERT AND ORIENTED X4. PT VSS. SR ON THE MONITOR. 2/2 PULSES. BOWEL PREP FOR COLONOSCOPY FINISHED AT 2315. PT VERY COMPLIANT AND AWARE OF HIS CARE. HAS DENIED ANY PAIN. PT HAVING STILL DARK, BROWN/GREEN LIQUID STOOL. GOOD UO. PT ABLE TO GET UP TO BEDSIDE COMMODE WITH STAND BY ASSIST. REPORT GIVEN TO GARRICK IN CCU. PT TRANSFERED TO CCU AT 0145. PT MAKING PROGRESS TOWARDS GOAL.
--- NOTE | 2018-12-08 04:32 | NUR ---
ASSESSMENT: PT TRANSFERRED FROM ICU AT APPROXIMATELY 0200. PT ALERT AND ORIENT TIMES FOURL. UP TO BSC WITH STEADY GAIT. STOOL IS STILL DARK BROWN WITH SEDIMENT. PT FINISHED ALL BOWEL PREPS. NPO SINCE . VSS, AFEBRILE. SR PER MONITOR. DENIES PAIN, SOB AND N/V. PT DID HAVE ONE TIME BM THAT WAS PARTIALLY CLEAR BUT HAD FOLLOWING STOOLS BEING BROWNISH WITH SEDIMENTS. SLOW PROGRESS, WILL CONTINUE TO MONITOR.
[2018-12-08 09:08] LABS: HEMATOCRIT 24.4 % (42.0-52.0); HEMOGLOBIN 7.9 gm/dL (14.0-18.0)
--- NOTE | 2018-12-08 14:48 | NUR ---
RETURNED FROM GI LAB AFTER COLONOSCOPY WITH VIDEO CAPSULE MONITOR. WILL REMAIN NPO UNTIL 1530 AND CAN EAT A MEAL AT 1730 AND REMOVE THE MONITOR AT 2130. FAMILY AT BEDSIDE. AAOX4 PLEASANT AND COOPERATIVE. LUNGS CLEAR ON ROOM AIR. SKIN INTACT. ABDOMENT SOFT ROUND WITH ACTIVE BS. VOIDS PER URINAL. NO COMPLAINTS OF PAIN OR DISCOMFORT.
--- NOTE | 2018-12-08 15:31 | NUR ---
Case opened to follow for dc planning. Pt is a&ox4 and independent prior to admission. Patrol Officer visited with the pt and his at bedside. They live in their own home with one step inside. [facility] and [facility] nursing. He requested senior grant writer contact the [facility] and update them on his potential dc needs. Message left with transitional nurse at the [place]. No dc planning needs indicated other than possible medication changes. Pt had EGD, colonoscopy and currently doing the capsule study to try and find source of bleeding. Pt states he is feeling better after 3 units of blood. Hemo/onc consult anticipated if capsule study is negative.
[2018-12-08 17:56] LABS: HEMATOCRIT 27.2 % (42.0-52.0); HEMOGLOBIN 8.9 gm/dL (14.0-18.0)
--- NOTE | 2018-12-08 18:41 | NUR ---
C/O FEELING LIKE BLADDER IS FULL. SCANNED FOR 995, VOIDED 50CC, STRAIGH CATH FOR 1500 CLEAR YELLOW URINE. REPORTED IMMEDIATE RELIEF OF PAIN FROM FULL BLADDER
[2018-12-09] VITALS (7 sets, daily range): BP systolic 97–134; BP diastolic 44–64
--- NOTE | 2018-12-09 07:54 | NUR ---
ASSUME CARE 1900. PT/VITALS STABLE. DENIES ANY PAIN. NO BM NOTED OR ANY FORM OF BLEEDING NOTED. UP AND WALKING THE HALLWAY. ON PROTONIX DRIP AT 8MG/HR. ADEQUATE REST NOTED. PT VOIDING ADEQUATELY POST RAMIFLO MEDICATION. WILL CONTINUE TO MONITO AND FOLLOW WITH POC. AT BEDSIDE. PT ENCOURAGED TO ASK MD ABOUT RESTARTING INSULIN. INFORMATION PASSED ON TO DAY NURSE.
--- NOTE | 2018-12-09 08:29 | P ---
[place] [address] PROCEDURE REPORT Name: ACRMELO FUNG Room #: 211-P ADM IN M.R.#: [id number] Admission: 12/05/18 ������������������ Attend Phys: Nando Welch MD Discharge: ������������������ Date of : 45 Report #: [id number] THIS REPORT FOR: //name// CC: Pelon Rodríguez MD [facility] DATE OF SERVICE: 12/06/2018 PROCEDURE PERFORMED: Upper endoscopy. HISTORY OF PRESENT ILLNESS: The patient is a 73-year-old male with a history of dark stools and generalized weakness for the last 2 weeks. He has a history of atrial fibrillation, takes Savaysa as well as aspirin for his history of AFib. He was Hemoccult positive x 1 here on admission. He was noted to be significantly anemic with hemoglobin of 5.1 on admission. He has now received three units of packed cells. His hemoglobin is 8.1 today. His most recent hemoglobin outpatient was 10/15 at 14.6. He was feeling dizzy. He denies any nausea, vomiting or abdominal pain. He was taking Zantac at home for history of reflux. Anticoagulation therapy has been held. Interestingly, he had similar presentation in 2016 in which he underwent an EGD and colonoscopy, which were essentially negative other than gastritis and diverticulosis on the colon and then underwent an M2 capsule, which was normal. He had a significant drop in his hemoglobin at that time and he was on similar medications. Plan is for EGD today. DESCRIPTION OF PROCEDURE: The risks and benefits of the procedure were explained to the patient those risks including but not limited to bleeding, perforation and the risk of sedation. He understood these risks and gave informed consent. Sedation was given using propofol per anesthesia. Next, using a standard Olympus upper endoscope, the scope was placed in the patient's mouth and advanced under direct vision through the esophagus, stomach and into the second portion of the duodenum. The larynx was normal in appearance. The esophagus was normal throughout. The GE junction was normal. Overall, there was a mild gastritis noted in the upper body. No evidence of ulcerations or erosions. No evidence of blood throughout the exam today. I did not obtain biopsies as the patient has been on anticoagulation therapy as of yesterday. In the gastric antrum, there was a mild gastritis or possible very early signs of GAVE in one small area; however, again I cannot obtain biopsies and there were no signs of bleeding. Because of his recent anticoagulation therapy, I did not want to proceed with cautery as there is no stigmata of bleeding from this area and it was very mild. The pylorus was normal and patent. The duodenal bulb, first and second portion were all normal. No evidence of blood. No AVMs were [address] [place] [address] PROCEDURE REPORT Name: CARMELO FUNG Room #: 211-P [facility] IN M.R.#: [id number] Admission: 12/05/18 ������������������ Attend Phys: Nando Welch MD Discharge: ������������������ Date of : 45 Report #: [id number]. No ulcerations were noted. At this point, the scope was then withdrawn and the procedure terminated. The patient tolerated the procedure well. IMPRESSION: 1. Mild gastritis, upper body. No signs of bleeding. 2. Mild gastritis area in the antrum, although this may reflect a very small area of GAVE. I suspect this is less likely. No signs of bleeding. 3. Otherwise, normal upper endoscopy. RECOMMENDATIONS: We will discuss further workup with the patient. Could consider a repeat colonoscopy since it has been 3 years since last colonoscopy for further evaluation. Of note, the patient did have a normal M2 capsule 3 years ago as well. May need to consider repeating this as well in the future. Obviously, he had a significant drop in his hemoglobin. There are no signs of active bleeding at this time. Therefore, I do not think a nuclear medicine scan would be helpful currently. I would continue to hold his anticoagulation therapy, continue to monitor hemoglobin closely and continue PPI therapy. I will discuss options with the patient and his family and we will proceed from there. Thank you for allowing me to participate in his care. ��������������������������������������������� <ELECTRONICALLY SIGNED> ���������������������������������������� By: Baldev Babin MD ��������������������������������������������� 12/09/18 0829 1333 [id number] Baldev Babin MD /nt
[2018-12-09 08:40] LABS: ABSOLUTE RETIC COUNT 0.151 10^6/uL; OBSERVED RETIC COUNT 4.55 % (0.6-2.6)
--- NOTE | 2018-12-09 10:29 | NUR ---
GUIDE ESCORT SPOKE WITH THE TRANSITIONAL RN AT THE [facility]. THE PT UTILIZES THE [facility] AND DC INSTRUCTIONS/SUMMARY/NEW SCRIPTS NEED TO BE FAXED THEM ATTN: DR. SHAHLA MCKINNON FAX# [phone]. POSSIBLE DC LATER TODAY PENDING CAPSULE STUDY AND HEMO/ONC RECOMMENDATIONS.
[2018-12-09] MEDS ORDERED: PROTONIX40 M1 PO (11:29)
--- NOTE | 2018-12-09 14:21 | NUR ---
PT STATES THAT SINCE HE HAS STARTED HIS MEDICATION TO HELP WITH URINE FLOW YESTERDAY HE HAS NO PROBLEMS AND IS URINATING WITHOUT DIFFICULTY. PT AMBULATING HALLS INDEPENDENTLY.
[2018-12-10 05:33] VITALS: BP 107/49
--- NOTE | 2018-12-10 05:41 | NUR ---
ASSUME CARE 1900. PT/VITALS STABLE. DENIES ANY PAIN. TOLERATES ACTIVITY WELL. UP AD REENA/WALKING HALLWAYS. ASSESSMENT CHARTED. PROGRESSING WELL WITH POC. NPO SINCE MIDNIGHT FOR SMALL BOWEL ENTEROSCOPY. WILL CONITNUE TO MONITOR AND FOLLOW WITH POC
[2018-12-10 08:04] VITALS: BP 105/45
[2018-12-10 09:06] LABS: HEMOGLOBIN 7.9 g/dL (13.0-17.7)
[2018-12-10 11:28] VITALS: BP 94/37
[2018-12-10 11:56] LABS: HEMATOCRIT 25.3 % (42.0-52.0); HEMOGLOBIN 8.1 gm/dL (14.0-18.0)
[2018-12-10 14:58] VITALS: BP 134/64
--- NOTE | 2018-12-10 19:43 | NUR ---
ASSUMED CARE OF PT AT 0700. PT A&OX4, UP AD REENA. PT TAKEN TO GI LAB FOR PROCEDURE AND TOLERATED WELL. PT RETURNED TO UNIT AT APPROX 1000 AND HAD SNACK. PT'S HGB WAS 8.1 AND THAT WAS COMMUNICATED TO DR. Jeimy GUILLORY AND DISCHARGE ORDERS RECEIVED. PT STATED HE HAD ALL BELONGINGS. PT AND SPOUSE COMMUNICATED UNDERSTANDING OF ALL DISCHARGE ORDERS, MEDS AND FOLLOWUP APPTS. IV AND TELE REMOVED.
--- NOTE | 2018-12-11 12:17 | HC ---
[facility] [place] [address] CONSULTATION Name: CARMELO FUNG Room #: 211-P [facility] IN M.R.#: [id number] Admission: 12/05/18 ������������������ Attend Phys: Nando Welch MD Discharge: 12/10/18 ������������������ Date of : 45 Report #: [id number] THIS REPORT FOR: //name// CC: Pelon Harvey MD [facility] DATE OF SERVICE: 12/09/2018 REASON FOR CONSULTATION: Anemia. HISTORY OF PRESENT ILLNESS: The patient is a very pleasant 73-year-old gentleman from the [place] who back in October was in the hospital for chest pain, was discharged on 10/15/2018 with hemoglobin of 14.6. Over the next several weeks, he noticed when he was outside working, he was becoming short of breath with less exertion. In the past, he was able to do yard work for 4 hours. This was down to an hour. His notes maybe about 3 or 4 days before he came to the hospital, he was little bit paler looking. He had lab at the [facility] which was low there and had come to ER here was found to be 5.1, noted significant that his MCV is slightly on the low side 79 for the last 7 years. The patient says that his stools might have been darker on occasion during that time, not necessarily black, just a very dark brown, no obvious blood. No obvious blood in his urine, though we do note that he does have a history of occasionally passing small blood clots that is known to his urologist, no worse than usual. He does have chronic bruising from being on the Savaysa for the last 3 years. Denies any headaches, any mouth sores, swallowing difficulties, new breathing difficulties, new arm or leg swelling, abdominal pain, new bowel difficulty, does have some slight bowel changes with his new diabetic medicine. He noted that he began the Ozempic about 3 months ago and has been happy with the results. Note that, reviewing the lab, his total bilirubin was 0.2 on admission, BUN was 23, creatinine 1.1. He has had 3 units of blood, his hemoglobin yesterday was 8.9. The last time he had iron, B12 and folate, iron was in 2015, folate and B12 was in 2011. His last cystoscopy was maybe about a year ago. The patient does report a history of iron deficiency with leg cramps about 15 years ago, was on oral iron and all the leg cramps went away when he stopped it. He does not actually know when his last iron was checked specifically. He just know his hemoglobin gets checked, but he is not sure how often. PAST MEDICAL HISTORY: Notable for atrial fibrillation, insulin-requiring diabetes, prostate cancer treated with radiation therapy at [facility] [address] [place] [address] CONSULTATION Name: CARMELO FUNG Room #: 211-P [facility] IN M.R.#: [id number] Admission: 12/05/18 ������������������ Attend Phys: Nando Welch MD Discharge: 12/10/18 ������������������ Date of : 45 Report #: [id number] about 9 years ago, follows with Dr. Graham. Sounds like he has a history of maybe some cystitis, I am not sure what the cause of this. He also had Lupron with his prostate cancer, also a penile implant, bilateral lymphedema, obesity, dyslipidemia, hypertension, coronary artery disease, atrial fibrillation, cardiac arrest in 2016. FAMILY HISTORY: No blood disorders. SOCIAL HISTORY: He was in service for a number of years. , is present. No alcohol or tobacco use. ALLERGIES: None. MEDICATIONS: At this time in the hospital currently include flecainide 50 b.i.d., atenolol 50 at bedtime, losartan 25 daily, diltiazem 180 daily, digoxin 0.125 daily, pantoprazole drip, Rapaflo 8 mg at bedtime. PHYSICAL EXAMINATION: GENERAL: The patient appears his stated age. VITAL SIGNS: Height is 5 feet 8 inches, which is 172.7 cm. Weight is 222 pounds or 100.8 kilograms. Blood pressure 110/47, O2 sat 98%, respirations 18, pulse 77, and temperature 97.9. MOOD: He is alert and pleasant, very conversant. LUNGS: Appear to be clear. HEART: Regular rate. No definite murmur to my ears. LYMPHATICS: No enlarged lymph nodes in the supraclavicular, cervical, axillary or inguinal region. ABDOMEN: Obese. No organomegaly. EXTREMITIES: He does have some chronic venous stasis type changes, some mild edema. IMAGING: No complex imaging recently. DISCUSSION: Discussed with the patient that given his lack of jaundice, lack of what sounds like hematuria or pumpkin colored urine and also normal bilirubin here and also nonsignificant change in signs of red cells, this most likely represents GI blood loss compared to anything else. The fact that his white count and platelets are normal and the differential is normal, suggest strongly that this is not a bone marrow disorder. I would be suspicious that he has some chronic iron deficiency anemia with chronic low MCV, though this could be normal for him. Recent EGD and colonoscopy are unrevealing except for diverticulosis that is nonbleeding. Does have a history of gastritis in the past. Note that a capsule endoscopy is pending. It is possible whatever bleeding he had and now that he is off Savaysa, he is no longer bleeding. I do not think there is any role for a bone marrow biopsy. Also, unfortunately, he said he has been transfused and such as B12, folate, retic, iron panel will be much less accurate [facility] [address] [place] [address] CONSULTATION Name: CARMELO FUNG Room #: 211-P [facility] IN [facility].#: [id number] Admission: 12/05/18 ������������������ Attend Phys: Nando Welch MD Discharge: 12/10/18 ������������������ Date of : 45 Report #: [id number] than usual. We will check a haptoglobin and hemosiderin. We will also check a UA to see how much blood if any he has in his urine. ASSESSMENT AND PLAN: 1. Anemia, most likely gastrointestinal blood loss, not currently occurring, may have been exacerbated by Savaysa. We will defer to others whether to restart the Savaysa. We will check a hemosiderin and haptoglobin. Would strongly encourage check an iron, B12 and folate in probably 4-6 weeks once his transfused blood is less apparent in his total blood volume. We will also check a UA and may need to consider iron replacement if he is found to be iron deficient in the future. It also may be that he cannot go back on Savaysa or other blood thinner because of bleeding. 2. Atrial fibrillation. Briefly, talked with Dr. Rex Rodríguez who was not aware the patient was admitted to the hospital and he is aware of the blood issues and the question about the Savaysa and bleeding difficulties. 3. Hypertension. Meds per others. 4. Hyperlipidemia. Pravastatin. 5. Diabetes. Meds and diet per others. 6. History of prostate cancer. The patient reports PSA unremarkable. We will carbon Dr. Graham. 7. Gastroesophageal reflux disease. The patient is on PPI. 8. Arrhythmia. The patient has been on Cardizem, flecainide and beta elizabeth. We will be available and follow. ��������������������������������������������� <ELECTRONICALLY SIGNED> ���������������������������������������� By: Juanito Montero MD ��������������������������������������������� 12/11/18 1217 0823 2255 Juanito Montero MD /nt
--- NOTE | 2018-12-16 00:06 | P ---
[facility] [place] [address] PROCEDURE REPORT Name: CARMELO FUNG Room #: 211-P [facility] IN M.R.#: [id number] Admission: 12/05/18 ������������������ Attend Phys: Nando Welch MD Discharge: 12/10/18 ������������������ Date of : 45 Report #: [id number] THIS REPORT FOR: //name// CC: Pelon Welch MD DIAGNOSTIC COLONOSCOPY PATIENT OF: Dr. Pelon Gonzales and Dr. Nando Welch. INDICATION FOR PROCEDURE: This patient has a microcytic anemia with normal iron, B12 and folic acid levels. The etiology of his anemia is unclear, but he was presyncopal with a hemoglobin of 5.1 at home, etiology of blood loss is not clear. An EGD has been performed previously that did not reveal the source of bleeding. Informed consent for this procedure was obtained prior to the administration of any medication. The risks of the procedure, which include bleeding, perforation, infection, complications of sedation and the possibility I could miss something have been explained to the patient and his and he has indicated his consent by signing. Anesthesia kindly provided deep sedation for this procedure. Digital rectal exam was performed that did not reveal any abnormal palpable irregularities. Then, the Olympus colonoscope was introduced through the anal sphincter and advanced under direct visualization to the terminal ileum. Findings are noted on withdrawal of the scope. The mucosal lining of the terminal ileum appears normal. Cecum, normal mucosa except for one isolated uncomplicated diverticulum. Ascending colon, normal mucosa. Hepatic flexure, normal mucosa. Transverse colon, occasional scattered diverticula are noted in the transverse colon. Splenic flexure, normal mucosa. Descending colon, uncomplicated diverticulosis is noted. Sigmoid colon, multiple uncomplicated diverticula are noted in the sigmoid colon. Rectum, normal mucosa. Retroflex view did not reveal any abnormalities. The scope was withdrawn. The patient went to the recovery area in stable condition. He tolerated the procedure well. IMPRESSION: 1. Very good colonic prep. 2. No blood seen in the entire colon or terminal ileum. 3. Pancolonic uncomplicated diverticulosis. 4. The source of his anemia is not clear from this exam. He has had a negative EGD. [facility] [address] [place] [address] PROCEDURE REPORT Name: CARMELO FUNG Room #: 211-P [facility] IN ..#: [id number] Admission: 12/05/18 ������������������ Attend Phys: Nando Welch MD Discharge: 12/10/18 ������������������ Date of : 45 Report #: [id number] RECOMMENDATIONS: My recommendations are to proceed with an M2 capsule study of the small intestine as the next test. I have discussed this with Dr. Leos and he has given approval for this test to be done as an inpatient on this patient. If it is also unrevealing as it was previously, we will need to get an urgent Hematology consult because the patient's hemoglobin will be 5 again in about 7 days. He can start a regular diet one that works out for the M2 capsule instructions. Thank you very much once again for allowing me to participate in his care. ��������������������������������������������� <ELECTRONICALLY SIGNED> ���������������������������������������� By: Katya Rasheed DO ��������������������������������������������� 12/16/18 0006 1312 0503 Katya Rasheed DO /nt
== END 2018-12-10 15:30 | disposition home or self-care (01) | DRG 377 ==
LOC: ER 18:38 → ICU 20:43 → EROBS 20:43 → ICU 12-06 00:16 → 2N 12-08 02:07
PROVIDERS: Internal Medicine; Internal Medicine Gastroenterology; Internal Medicine Hematology & Oncology; Student in an Organized Health Care Education/Training Program; ADMIT Internal Medicine Geriatric Medicine
PROC: 30233N1 Transfusion of Nonautologous Red Blood Cells into Peripheral Vein, Percutaneous Approach (ICD-10-PCS; principal; 2018-12-05)
PROC: 0DJ08ZZ Inspection of Upper Intestinal Tract, Via Natural or Artificial Opening Endoscopic (ICD-10-PCS; 2018-12-06)
PROC: 0DJD8ZZ Inspection of Lower Intestinal Tract, Via Natural or Artificial Opening Endoscopic (ICD-10-PCS; 2018-12-08)
DX: K92.2 Gastrointestinal hemorrhage, unspecified (principal); N17.0 Acute kidney failure with tubular necrosis; E44.0 Moderate protein-calorie malnutrition; D62 Acute posthemorrhagic anemia; E11.9 Type 2 diabetes mellitus without complications; K21.9 Gastro-esophageal reflux disease without esophagitis; K29.70 Gastritis, unspecified, without bleeding; K57.30 Diverticulosis of large intestine without perforation or abscess without bleeding; I25.10 Atherosclerotic heart disease of native coronary artery without angina pectoris; I10 Essential (primary) hypertension; I49.9 Cardiac arrhythmia, unspecified; K59.00 Constipation, unspecified; I48.91 Unspecified atrial fibrillation; E66.9 Obesity, unspecified; E78.5 Hyperlipidemia, unspecified; Z68.33 Body mass index [BMI] 33.0-33.9, adult; Z86.74 Personal history of sudden cardiac arrest; Z85.46 Personal history of malignant neoplasm of prostate; Z92.3 Personal history of irradiation; Z90.49 Acquired absence of other specified parts of digestive tract; Z79.4 Long term (current) use of insulin; Z79.01 Long term (current) use of anticoagulants; Z79.82 Long term (current) use of aspirin; Z79.899 Other long term (current) drug therapy; Z86.010 Personal history of colon polyps
CPT/HCPCS: 10078; 10081; 62110; 62900; 70005

== ENCOUNTER 2019-01-02 10:17 | Emergency (ER) | payer OTHER ==
[~2019-01-02] VITALS: Ht 172.7 cm; Wt 101.2 kg
[~2019-01-02 10:17] MED LIST changes: +AMOX TR-K CLV1 EAC4 PO; +OZEMPIC0.25 MG/0. SUBQ; +PROTONIX40 M1 PO
[2019-01-02] MEDS ORDERED: IRON325 PO (10:48)
[2019-01-02 10:49] LABS: ABSOLUTE NEUTROPHILS 5.5 thou/uL (1.4-8.2); BASOPHILS 0.9 % (0.0-2.0); EOSINOPHILS 1.9 % (0.0-3.0); HEMATOCRIT 33.4 % (42.0-52.0); HEMOGLOBIN 10.5 gm/dL (14.0-18.0); LYMPHOCYTES 11.4 % (24.0-44.0); MCHC 31.4 g/dL (28.0-37.0); MCV 73.4 fL (80.0-100.0); MONOCYTES 8.9 % (1.0-8.0); PLATELET COUNT 139 thou/uL (150-400); POLYS 76.9 % (36.0-66.0); RBC 4.55 mil/uL (4.50-6.00); RDW 27.6 % (10.5-14.5); WBC 7.1 thou/uL (4.0-11.0)
[2019-01-02 10:50] LABS: URINE BILIRUBIN NEGATIVE (Negative); URINE BLOOD 3+ (Negative); URINE CLARITY CLOUDY; URINE COLOR RED; URINE GLUCOSE-RANDOM* 3+ (Negative); URINE KETONES NEGATIVE (Negative); URINE LEUKOCYTES-REFLEX NEGATIVE (Negative); URINE NITRITE-REFLEX NEGATIVE (Negative); URINE PROTEIN (DIPSTICK) 2+ (Negative); URINE SPECIFIC GRAVITY 1.015 (1.005-1.035); URINE UROBILINOGEN 0.2 E.U./dl (0.2-1.0)
[2019-01-02 11:02] LABS: CALCIUM 8.3 mg/dL (8.5-10.1); CREATININE 1.5 mg/dL (0.7-1.3); POTASSIUM 4.2 mmol/L (3.5-5.1)
[2019-01-02 11:04] LABS: APTT 29.6 Seconds (24.5-32.8); PROTIME 10.6 Seconds (9.3-11.4)
[2019-01-02 11:08] LABS: ALBUMIN 3.5 g/dL (3.4-5.0); TOTAL BILIRUBIN 0.4 mg/dL (<0.1-1.0); TOTAL PROTEIN 6.8 g/dL (6.4-8.2)
[2019-01-02 11:10] LABS: BACTERIA-REFLEX 1-9 Few /HPF (None Seen); CASTS None Seen /LPF (None Seen); CRYSTALS None Seen /LPF (None Seen); SQUAMOUS None Seen /LPF (0-3); URINE RBC >20 Many /HPF (0-2); URINE WBC-REFLEX 0-5 Rare /HPF (0-5)
[2019-01-02 12:06] LABS: ANISOCYTOSIS 3+; MICROCYTES 2+; OVALOCYTES 1+; POLYCHROMASIA OCCASIONAL
[2019-01-02 12:07] LABS: HYPOCHROMASIA 1+
[2019-01-02 12:52] VITALS: BP 118/49
[2019-01-03] MEDS ORDERED: KEFLEX500 M1 PO (13:04)
== END 2019-01-02 13:33 | disposition home or self-care (01) ==
LOC: ER 10:17
PROVIDERS: Physician Assistant
DX: R33.9 Retention of urine, unspecified (principal); R31.9 Hematuria, unspecified; E11.9 Type 2 diabetes mellitus without complications; K21.9 Gastro-esophageal reflux disease without esophagitis; E78.5 Hyperlipidemia, unspecified; I10 Essential (primary) hypertension; E66.9 Obesity, unspecified; Z68.33 Body mass index [BMI] 33.0-33.9, adult; Z90.49 Acquired absence of other specified parts of digestive tract

== ENCOUNTER 2019-01-03 10:59 | Emergency (ER) | payer OTHER ==
[~2019-01-03] VITALS: Ht 172.7 cm; Wt 99.3 kg
[~2019-01-03 10:59] MED LIST changes: +IRON325 PO
[2019-01-03 11:39] LABS: HEMOGLOBIN 10.8 gm/dL (14.0-18.0); MCH 22.9 pg (26.0-34.0); RBC 4.73 mil/uL (4.50-6.00); RDW 28.4 % (10.5-14.5); WBC 8.2 thou/uL (4.0-11.0)
[2019-01-03 12:51] LABS: URINE BILIRUBIN NEGATIVE (Negative); URINE BLOOD 3+ (Negative); URINE CLARITY CLOUDY; URINE COLOR RED; URINE GLUCOSE-RANDOM* 3+ (Negative); URINE KETONES NEGATIVE (Negative); URINE NITRITE-REFLEX NEGATIVE (Negative); URINE PROTEIN (DIPSTICK) 1+ (Negative); URINE SPECIFIC GRAVITY <= 1.005 (1.005-1.035); URINE UROBILINOGEN 0.2 E.U./dl (0.2-1.0)
[2019-01-03 12:52] LABS: URINE LEUKOCYTES-REFLEX 1+ (Negative)
[2019-01-03] MEDS ORDERED: KEFLEX500 M1 PO (13:04)
[2019-01-03 13:06] LABS: CASTS None Seen /LPF (None Seen); CRYSTALS None Seen /LPF (None Seen); MUCUS 0-3 Light strn/LPF (None Seen); SQUAMOUS 0-3 Few /LPF (0-3); URINE RBC >20 Many /HPF (0-2); URINE WBC-REFLEX 0-5 Rare /HPF (0-5)
[2019-01-03 13:07] LABS: BACTERIA-REFLEX 1-9 Few /HPF (None Seen)
[2019-01-03 13:28] VITALS: BP 102/41
== END 2019-01-03 13:29 | disposition home or self-care (01) ==
LOC: ER 10:59
PROVIDERS: Emergency Medicine
DX: T83.098A Other mechanical complication of other urinary catheter, initial encounter (principal); N39.0 Urinary tract infection, site not specified; E11.9 Type 2 diabetes mellitus without complications; K21.9 Gastro-esophageal reflux disease without esophagitis; E78.5 Hyperlipidemia, unspecified; I10 Essential (primary) hypertension; Z90.49 Acquired absence of other specified parts of digestive tract; Z87.891 Personal history of nicotine dependence; Z79.4 Long term (current) use of insulin

== ENCOUNTER 2019-01-03 19:41 | Emergency (ER) | payer OTHER ==
[~2019-01-03] VITALS: Ht 172.7 cm; Wt 99.3 kg
[~2019-01-03 19:41] MED LIST changes: +KEFLEX500 M1 PO
[2019-01-03 22:26] VITALS: BP 124/55
== END 2019-01-03 22:26 | disposition short-term general hospital (02) ==
LOC: ER 19:41
DX: N13.9 Obstructive and reflux uropathy, unspecified (principal); E11.9 Type 2 diabetes mellitus without complications; E78.5 Hyperlipidemia, unspecified; I10 Essential (primary) hypertension; E66.9 Obesity, unspecified; Z68.33 Body mass index [BMI] 33.0-33.9, adult; Z90.49 Acquired absence of other specified parts of digestive tract; Z87.891 Personal history of nicotine dependence

== ENCOUNTER 2019-11-27 06:41 | Inpatient (IN) | payer OTHER ==
[~2019-11-27] VITALS: Ht 172.7 cm; Wt 108.2 kg
--- NOTE | ~2019-11-27 | DSS ---
[facility] [place] [address] SHORT STAY SUMMARY Name: CARMELO FUNG Room #: 205-P ADM IN M.R.#: [id number] Admission: 11/27/19 Attend Phys: Nando Welch MD Discharge: Date of : 45 Report #: [id number] THIS REPORT FOR: cc: Yves Gonzales MD,Yves Welch,Nando Patel MD ~ THIS REPORT FOR: //name// CC: Yves Welch FINAL DIAGNOSES: 1. Chest pain. 2. Coronary artery disease. 3. Diabetes type 2. 4. Chronic atrial fibrillation. 5. Cholelithiasis. HISTORY OF PRESENT ILLNESS: The patient presented to the Emergency Room with chest pain. He had had midsternal chest pain that awoke him from sleep around 5:30 and persisted for about an hour by the time he presented to the ER. He denied any tachycardia, but said that his normal resting heart rate is in the 60s and he has noticed at home with his smartwatch that his heart rate was in the 90s. There was no rapid AFib documented through ER monitoring, now lying in bed post-cath. He just complains of pain under the sternum, but notices it seems to hurt worse when he moves, coughs or takes a deep breath. PAST MEDICAL HISTORY: Coronary artery disease, prior history of cardiac arrest with successful resuscitation 5 years ago. He has had history of GI bleed 1 year ago, also history of GERD, diabetes type 2, atherosclerosis, dyslipidemia, remote hepatitis A, hypertension, obesity, prostate cancer with prior history of radiation and Lupron injections. PAST SURGICAL HISTORY: Appendectomy, cardiac arrest with intubation in 2016. FAMILY HISTORY: Noncontributory. SOCIAL HISTORY: He is , lives with his . He has a prior tobacco history, but none currently. Occasional alcohol use. ALLERGIES: None. MEDICATIONS: Zempack, Cozaar, diltiazem, Lasix, Pravachol, flecainide, Tenormin, B12, Flomax, Lidoderm patch, diclofenac gel, iron, Glyxambi, bupropion, Levemir, NovoLog, Flovent, aspirin. REVIEW OF SYSTEMS: Denies headache, shortness of breath, fever, chills, nausea, [facility] [address] [place] [address] SHORT STAY SUMMARY Name: CARMELO FUNG Room #: [address] [place] [address] IN M.R.#: [id number] Admission: 11/27/19 Attend Phys: Nando Welch MD Discharge: Date of : 45 Report #: [id number] vomiting, diarrhea, constipation, dysuria, syncope. OBJECTIVE: VITAL SIGNS: Temperature 36.5, pulse 94, respiratory 22, blood pressure 148/65, O2 sat 95% on room air. GENERAL: He is awake and alert, in no distress. HEAD AND NECK: Unremarkable. LUNGS: Clear. HEART: Regular. ABDOMEN: Soft, normoactive bowel sounds. EXTREMITIES: No edema. NEUROLOGIC: Cranial nerves intact. Speech is fluent. HOSPITAL COURSE: He was admitted to [address] [place] [address] and taken to the cath laboratory technician by Dr. Rodríguez. Please see the separately dictated report, but he discussed the results with me and there are no targets for intervention at this time. A chest x-ray was negative for pneumonia. He had a gallbladder ultrasound, which showed some layering gallstones, but no cystic inflammation. He was also noted to have fatty liver infiltration and previous splenomegaly. Overall, his ultrasound was unchanged from 2017. He had no other interval complication. DISPOSITION: He will be discharged to home with diabetic diet, activity as tolerated, resume all home medications. Follow up with Dr. Gonzales in 2-4 weeks. He will see Dr. Rodríguez next month for an outpatient nuclear stress test. Return to the ER for any change in symptoms. By: 1312 1333 Nando Welch MD /nt
[2019-11-27 06:44] VITALS: BP 145/71
[2019-11-27] MEDS ORDERED: VOLTAREN GEL 1100 G1 TOP (07:03)
[2019-11-27] MEDS ORDERED: LIDOCAINE HC28.35 GM TOP (07:05)
[2019-11-27] MEDS ORDERED: FLOMAX0.4 MG PO (07:07)
[2019-11-27] MEDS ORDERED: VITAMIN B-121000 MC3 PO (07:08)
[2019-11-27 07:13] LABS: ABSOLUTE NEUTROPHILS 7.8 thou/uL (1.4-8.2); BASOPHILS 0.5 % (0.0-2.0); EOSINOPHILS 1.3 % (0.0-3.0); HEMATOCRIT 49.1 % (42.0-52.0); HEMOGLOBIN 16.5 gm/dL (14.0-18.0); LYMPHOCYTES 7.7 % (24.0-44.0); MCH 27.2 pg (26.0-34.0); MCHC 33.7 g/dL (28.0-37.0); MCV 80.8 fL (80.0-100.0); MONOCYTES 10.3 % (1.0-8.0); PLATELET COUNT 119 thou/uL (150-400); POLYS 80.2 % (36.0-66.0); RBC 6.08 mil/uL (4.50-6.00); RDW 16.2 % (10.5-14.5); WBC 9.8 thou/uL (4.0-11.0)
[2019-11-27 07:27] LABS: ANION GAP 11 mmol/L (7-16); BUN 25 mg/dL (7-18); CALCIUM 8.6 mg/dL (8.5-10.1); CHLORIDE 102 mmol/L (98-107); CO2 25 mmol/L (21-32); CREATININE 1.7 mg/dL (0.7-1.3); GLUCOSE 167 mg/dL (74-106); POTASSIUM 4.1 mmol/L (3.5-5.1)
[2019-11-27 07:31] LABS: SODIUM 138 mmol/L (136-145)
[2019-11-27 07:35] LABS: TROPONIN-I <0.06 ng/mL (<0.06)
[2019-11-27 09:54] VITALS: BP 134/63
--- NOTE | 2019-11-27 12:54 | EKG ---
[facility] [place] [address] ELECTROCARDIOGRAM REPORT Name: CARMELO FUNG Room #: 205-P ADM IN M.R.#: [id number] Admission: 11/27/19 Attend Phys: Nando Welch MD Discharge: Date of : 45 Report #: [id number] THIS REPORT FOR: cc: Yves Gonzales MD, Christopher B. 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[employer]ISA : 1945 Requested By: Igor Patel Order Number: [id number] MD: Randell Del Toro Measurements Intervals [place] Rate: 94 P: 41 ND: 212 QRS: 42 QRSD: 110 T: 28 QT: 367 QTc: 459 Interpretive Statements Sinus rhythm Borderline prolonged ND interval Borderline ST elevation, inferior leads Compared to ECG 12/05/2018 19:45:54 ST (T wave) deviation now present Electronically Signed On 11-27-2019 12:52:52 CDT by Randell Del Toro [email or web address] <ELECTRONICALLY SIGNED> By: Randell Del Toro MD, [facility] 11/27/19 1252 0649 0649 Randell Del Toro MD, FAC /EPI
--- NOTE | 2019-11-27 12:56 | EKG ---
[facility] [place] [address] ELECTROCARDIOGRAM REPORT Name: CARMELO FUNG Room #: 205-P ADM IN M.R.#: [id number] Admission: 11/27/19 Attend Phys: Nando Welch MD Discharge: Date of : 45 Report #: [id number] THIS REPORT FOR: cc: Yves Gonzales MD, Christopher B. MD Lundgren,Randell Mccarthy MD [facility] ~ THIS REPORT FOR: //name// 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: Maya BYNUM : 1945 Requested By: Rex Rodríguez Order Number: [id number] MD: Randell Del Toro Measurements Intervals [place] Rate: 94 P: 67 [place]: 209 QRS: 35 QRSD: 106 T: 28 QT: 360 QTc: 451 Interpretive Statements Sinus rhythm Borderline prolonged [place] interval Inferior infarct, old Compared to ECG 12/05/2018 19:45:54 No significant change was found Electronically Signed On 11-27-2019 12:55:13 CDT by Randell Del Toro [email or web address] <ELECTRONICALLY SIGNED> By: Randell Del Toro MD, [facility] 11/27/19 1255 1148 1148 Randell Del Toro MD, [facility] /EPI
--- NOTE | 2019-11-28 12:46 | CATHLAB ---
[facility] [place] [address] INVASIVE PROCEDURE REPORT Name: CARMELO FUNG Room #: 205-P DIS IN M.R.#: [id number] Admission: 11/27/19 Attend Phys: Nando Welch MD Discharge: 11/27/19 Date of : 45 Report #: [id number] THIS REPORT FOR: cc: Yves Gonzales MD, Christopher B. MD Mancuso, Gerald M. MD [facility] ~ APPROVED REPORT Study performed: 11/27/2019 09:48:20 Patient Details Patient Status: ED Room #: The patient is a 74 year-old male Event Personnel Rex Rodríguez Water Use Inspector, Anayeli Morales RTIvon, SILO FILLER Monitor, Jodi Kemp RN RN, Carmen Mi Procedures Performed Art Access - R femoral artery* Left Heart Cath w/or w/o Coronaries [id number] [facility] FFR 2830363 FFR 58291 Initial Mod Sed Same Phys/QHP Gr5y 286460 73675 Mod Sed Same Phys/QHP Ea 697593 Renal Bilateral Peripheral Angiography [id number] CVRENALBIL Indication Chest pain Procedure Narrative The Right Groin^ was infiltrated with 1% Lidocaine subcutaneous anesthesia. A PINNACLE 6FR Sheath #[id number] sheath was inserted into the RFA^. Coronary angiography was performed using coronary diagnostic catheters. The right coronary system was accessed and visualized with a JR4 catheter. The left coronary system was accessed and visualized with a JL4 catheter. The left ventricle was accessed and visualized with a Pigtail catheter. Left ventricular/Aortic Valve gradient assessed via catheter pullback. Left ventriculogram was performed in 30 degree projection. Closure device was deployed with a 6 Fr MYNXGRIP 6/7F #[id number]. The patient tolerated the procedure well and there were no complications associated with the procedure. There was no hematoma. Intraoperative Conscious Sedation Sedation start time: 10:31 Case end Time: [facility] [place] [address] [address] INVASIVE PROCEDURE REPORT Name: ANTONIETA,CARMELO VILLARREAL Room #: 205-P [facility] IN M.R.#: [id number] Admission: 11/27/19 Attend Phys: Olvin Simmons Discharge: 11/27/19 Date of : 45 Report #: [id number] 11:13 Fentanyl 100 mcg Versed 1 mg Fluoro Time: 3.33 minutes Dose: DAP 5143.50 cGycm2 685 mGy Contrast Type and Amount: Visipaque 70 ml Hemodynamics The aortic pressure is 143/61 mmHg with a mean of 95 mmHg. The left ventricular pressure is 137/5 mmHg with a mean of mmHg. The left ventricular end diastolic pressure is 21 mmHg. Conclusion #1. Normal left jugular size systolic function lower limits of normal EF 50 to 55% #2 left main with mild ostial disease long mildly calcified giving rise to LAD and circumflex. #3 the LAD is proximal calcification moderately heavy 40 to 50% long narrowing and then a mid vessel lesion at a second diagonal takeoff of 70 to 75%. FFR performed was 0.91-0.92 of this mid LAD bifurcation lesion. Will continue to treat this medically. #4 circumflex OM nondominant there is a small ramus branch which is mildly diseased circumflex a small vessel no occlusive disease #5 dominant right coronary with mild irregularity. PDA widely patent. #6 selective injection left renal artery widely patent. Selective injection right renal artery has an eccentric 50% ostial narrowing. Recommendations and plan: Continue aggressive risk factor modification. Aggressive blood pressure lipid control. Follow-up with nuclear stress testing looking to follow ischemia in anterior wall based on above FFR. Renal Doppler also to follow the right renal artery stenosis of 50%. <ELECTRONICALLY SIGNED> By: Rex Rodríguez MD, FACC 11/28/19 1245 1245 1245 eRx Rodríguez MD, FACC /INF
== END 2019-11-27 14:52 | disposition home or self-care (01) | DRG 287 ==
LOC: ER 06:41 → EROBS 08:34 → 2N 09:51
PROVIDERS: Emergency Medicine; ADMIT Internal Medicine Geriatric Medicine
DX: I25.119 Atherosclerotic heart disease of native coronary artery with unspecified angina pectoris (principal); I48.20 Chronic atrial fibrillation, unspecified; N17.9 Acute kidney failure, unspecified; K21.9 Gastro-esophageal reflux disease without esophagitis; E66.9 Obesity, unspecified; E78.5 Hyperlipidemia, unspecified; K80.20 Calculus of gallbladder without cholecystitis without obstruction; E78.00 Pure hypercholesterolemia, unspecified; N18.9 Chronic kidney disease, unspecified; I12.9 Hypertensive chronic kidney disease with stage 1 through stage 4 chronic kidney disease, or unspecified chronic kidney disease; I65.21 Occlusion and stenosis of right carotid artery; E11.22 Type 2 diabetes mellitus with diabetic chronic kidney disease; I48.0 Paroxysmal atrial fibrillation; Z68.36 Body mass index [BMI] 36.0-36.9, adult; Z90.49 Acquired absence of other specified parts of digestive tract; Z87.891 Personal history of nicotine dependence; Z85.46 Personal history of malignant neoplasm of prostate; Z79.82 Long term (current) use of aspirin; Z79.899 Other long term (current) drug therapy
CPT/HCPCS: 10081

== ENCOUNTER → 2019-12-21 | Outpatient (CLI) | payer OTHER ==
[~2019-12-21] MED LIST changes: +LIDOCAINE HC28.35 GM TOP; +VITAMIN B-121000 MC3 PO; +VOLTAREN GEL 1100 G1 TOP
== END ==
LOC: SJCVC 08:16 → SJCVCIMAG 08:16
DX: E11.22 Type 2 diabetes mellitus with diabetic chronic kidney disease (principal); I12.9 Hypertensive chronic kidney disease with stage 1 through stage 4 chronic kidney disease, or unspecified chronic kidney disease; N18.9 Chronic kidney disease, unspecified; E11.51 Type 2 diabetes mellitus with diabetic peripheral angiopathy without gangrene; I48.0 Paroxysmal atrial fibrillation; E78.00 Pure hypercholesterolemia, unspecified; I65.23 Occlusion and stenosis of bilateral carotid arteries; E78.5 Hyperlipidemia, unspecified; I48.20 Chronic atrial fibrillation, unspecified; Z79.4 Long term (current) use of insulin; Z79.82 Long term (current) use of aspirin; Z79.899 Other long term (current) drug therapy

== ENCOUNTER → 2020-01-02 | Outpatient (CLI) | payer OTHER | LOC: SJCVCIMAG 13:37 → SJCVC 13:37 | DX: I37.1 Nonrheumatic pulmonary valve insufficiency (principal); I25.10 Atherosclerotic heart disease of native coronary artery without angina pectoris; I12.9 Hypertensive chronic kidney disease with stage 1 through stage 4 chronic kidney disease, or unspecified chronic kidney disease; E11.22 Type 2 diabetes mellitus with diabetic chronic kidney disease; N18.9 Chronic kidney disease, unspecified; E78.49 Other hyperlipidemia; I48.0 Paroxysmal atrial fibrillation; I65.23 Occlusion and stenosis of bilateral carotid arteries; D68.59 Other primary thrombophilia; K21.9 Gastro-esophageal reflux disease without esophagitis; Z86.74 Personal history of sudden cardiac arrest; Z79.4 Long term (current) use of insulin; Z79.82 Long term (current) use of aspirin; Z79.899 Other long term (current) drug therapy ==

== ENCOUNTER → 2020-05-06 | Outpatient (CLI) | payer OTHER | LOC: SJCVC 11:12 | PROVIDERS: ATTEND Internal Medicine Cardiovascular Disease | DX: I48.0 Paroxysmal atrial fibrillation (principal); R94.31 Abnormal electrocardiogram [ECG] [EKG]; I25.10 Atherosclerotic heart disease of native coronary artery without angina pectoris; I12.9 Hypertensive chronic kidney disease with stage 1 through stage 4 chronic kidney disease, or unspecified chronic kidney disease; E11.22 Type 2 diabetes mellitus with diabetic chronic kidney disease; N18.9 Chronic kidney disease, unspecified; I65.23 Occlusion and stenosis of bilateral carotid arteries; D68.59 Other primary thrombophilia; K21.9 Gastro-esophageal reflux disease without esophagitis; E78.5 Hyperlipidemia, unspecified; Z79.4 Long term (current) use of insulin; Z86.74 Personal history of sudden cardiac arrest; Z79.82 Long term (current) use of aspirin; Z79.899 Other long term (current) drug therapy ==

== ENCOUNTER → 2020-05-21 | Outpatient (CLI) | payer OTHER | LOC: SJCVC 13:24 | PROVIDERS: ATTEND Internal Medicine Cardiovascular Disease | DX: I48.0 Paroxysmal atrial fibrillation (principal); E11.22 Type 2 diabetes mellitus with diabetic chronic kidney disease; I12.9 Hypertensive chronic kidney disease with stage 1 through stage 4 chronic kidney disease, or unspecified chronic kidney disease; N18.9 Chronic kidney disease, unspecified; K92.2 Gastrointestinal hemorrhage, unspecified; R31.9 Hematuria, unspecified; D68.69 Other thrombophilia; R94.31 Abnormal electrocardiogram [ECG] [EKG]; E11.9 Type 2 diabetes mellitus without complications; I65.29 Occlusion and stenosis of unspecified carotid artery; Z95.5 Presence of coronary angioplasty implant and graft; Z79.82 Long term (current) use of aspirin; Z79.899 Other long term (current) drug therapy; Z79.4 Long term (current) use of insulin ==

== ENCOUNTER → 2020-12-03 | Outpatient (CLI) | payer OTHER | LOC: SJCVC 11:11 | PROVIDERS: ATTEND Internal Medicine Cardiovascular Disease | DX: I49.1 Atrial premature depolarization (principal); I25.10 Atherosclerotic heart disease of native coronary artery without angina pectoris; I10 Essential (primary) hypertension; E78.00 Pure hypercholesterolemia, unspecified; E11.9 Type 2 diabetes mellitus without complications; I48.0 Paroxysmal atrial fibrillation; E78.5 Hyperlipidemia, unspecified; K21.9 Gastro-esophageal reflux disease without esophagitis; I65.23 Occlusion and stenosis of bilateral carotid arteries; Z79.4 Long term (current) use of insulin; Z72.89 Other problems related to lifestyle; Z79.82 Long term (current) use of aspirin; Z79.899 Other long term (current) drug therapy ==

== ENCOUNTER 2021-03-09 00:24 | Inpatient (IN) | payer OTHER ==
[~2021-03-09] VITALS: Ht 172.7 cm; Wt 108.9 kg
[2021-03-09 00:27] VITALS: BP 162/76
[2021-03-09 01:08] LABS: ABSOLUTE NEUTROPHILS 7.5 thou/uL (1.4-8.2); BASOPHILS 0.4 % (0.0-2.0); EOSINOPHILS 0.6 % (0.0-3.0); HEMATOCRIT 44.9 % (42.0-52.0); HEMOGLOBIN 15.4 gm/dL (14.0-18.0); MCH 27.3 pg (26.0-34.0); MCHC 34.2 g/dL (28.0-37.0); MCV 79.8 fL (80.0-100.0); MONOCYTES 4.2 % (1.0-8.0); PLATELET COUNT 111 thou/uL (150-400); POLYS 87.8 % (36.0-66.0); RBC 5.63 mil/uL (4.50-6.00); RDW 17.5 % (10.5-14.5); WBC 8.6 thou/uL (4.0-11.0)
[2021-03-09 01:11] LABS: ANION GAP 9 mmol/L (7-16); BUN 26 mg/dL (7-18); CALCIUM 8.5 mg/dL (8.5-10.1); CHLORIDE 106 mmol/L (98-107); CO2 25 mmol/L (21-32); CREATININE 1.6 mg/dL (0.7-1.3); GLUCOSE 194 mg/dL (74-106); POTASSIUM 4.2 mmol/L (3.5-5.1); SODIUM 140 mmol/L (136-145)
[2021-03-09 01:21] LABS: ALBUMIN 3.6 g/dL (3.4-5.0); DIRECT BILIRUBIN 0.7 mg/dL (<0.1-0.2); LIPASE 75 U/L (73-393); SGOT 85 U/L (15-37); SGPT 56 U/L (16-63); TOTAL BILIRUBIN 1.4 mg/dL (0.2-1.0); TOTAL PROTEIN 7.3 g/dL (6.4-8.2); TROPONIN-I <0.06 ng/mL (<0.06)
[2021-03-09 04:30] VITALS: BP 142/73
[2021-03-09 04:38] VITALS: BP 161/76
[2021-03-09] MEDS ORDERED: PLAVIX 75 MG TA75 MG PO (05:47)
[2021-03-09] MEDS ORDERED: PROTONIX40 M2 PO (05:50)
[2021-03-09] MEDS ORDERED: LANTUS SUBQ (05:52)
--- NOTE | 2021-03-09 06:30 | NUR ---
ADMIT:PT IS A 75 YAER-OLD MALE,ADMITTED TO CCU W/CHEST PAIN.PT IS A/OX4.ARRIVED TO UNIT VIA W/C ACCOMPANIED BY THE STAFF.VSS.DENIES CHEST PAIN ,SOB OR ANY DISTRESS UPON ARRIVAL TO UNIT.PT AMBULATED TO BR W/O ANY CONCERNS.ORIENTED TO RM AND UNIT ACTIVITIES.UPDATED ON POC AND IN AGREEMENT.SINUS TACHY ON MONITOR,RA W/O RESP DISTRESS.ADMISSION ASSESSMENT COMPLETED DOCUMENTED.MEDS REVIEWED AND RECONCILLED.PT DENIES ANY NEEDS AND OR DISCOMFORT AT THIS TIME.POC IS TO CONSULT .
[2021-03-09 07:20] VITALS: BP 121/69
[2021-03-09 08:13] LABS: CHOLESTEROL 114 mg/dL (<200); HDL CHOLESTEROL 34 mg/dL (>40); LDL CHOLESTEROL 65 mg/dL (<100); TC:HDL 3.4 Ratio (Not establshd); TRIGLYCERIDE 75 mg/dL (<150); VLDL 15 mg/dL (<40)
--- NOTE | 2021-03-09 08:13 | EKG ---
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
--- NOTE | 2021-03-09 15:22 | NUR ---
ASSESSMENT CHARTED. PT ALERT AND ORIENTED. VSS. DENIED HAVING PAIN OR DISCOMFORT. MEDS GIVEN ORDERED. NO CONCERNS AT THIS TIME.
[2021-03-09 16:20] VITALS: BP 115/75
--- NOTE | 2021-03-09 18:50 | EKG ---
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 : 1945 Requested By: Kadie Deal Order Number: [id number] : Price Epstein Measurements Intervals [place] Rate: 74 P: 19 AL: 188 QRS: 33 QRSD: 97 T: 53 QT: 393 QTc: 436 Interpretive Statements Sinus rhythm Atrial premature complex Minimal ST depression, anterolateral leads Compared to ECG 03/09/2021 00:33:20 Atrial premature complex(es) now present ST (T wave) deviation now present Electronically Signed On 03-09-2021 18:50:29 CDT by Price Epstein [email or web address] <ELECTRONICALLY SIGNED> By: Price Epstein MD, [facility] 03/09/21 1850 0119 0119 Price Epstein MD, [facility] /EPI
[2021-03-09 20:15] VITALS: BP 118/55
[2021-03-10 04:05] LABS: GLYCOHEMOGLOBIN (HGB A1C) 7.5 % (4.8-5.6)
[2021-03-10 04:16] LABS: HEMATOCRIT 40.2 % (42.0-52.0); MCH 26.8 pg (26.0-34.0); MCHC 33.4 g/dL (28.0-37.0); MCV 80.1 fL (80.0-100.0); RBC 5.02 mil/uL (4.50-6.00); RDW 17.6 % (10.5-14.5); WBC 6.1 thou/uL (4.0-11.0)
[2021-03-10 04:22] LABS: HEMOGLOBIN 13.4 gm/dL (14.0-18.0)
[2021-03-10 04:24] LABS: ALBUMIN 2.6 g/dL (3.4-5.0); CALCIUM 7.9 mg/dL (8.5-10.1); CREATININE 1.6 mg/dL (0.7-1.3); POTASSIUM 3.8 mmol/L (3.5-5.1); TOTAL BILIRUBIN 2.8 mg/dL (0.2-1.0); TOTAL PROTEIN 5.9 g/dL (6.4-8.2)
[2021-03-10 04:45] VITALS: BP 152/75
[2021-03-10 08:23] VITALS: BP 121/63
[2021-03-10 12:43] VITALS: BP 101/59
--- NOTE | 2021-03-10 18:17 | NUR ---
RECEIVED THE PATIENT SITTING ON CHAIR.ON ROOM AIR BREATHING SPONTANEOUSLY.NOT IN PAIN OR DISTRESS. PER ULTRASOUND, THEY CANT DO THE ABDOMINAL ULTRASOUND TODAY, INFORMED DR. BUSTAMANTE.ALL NEEDS ATTENDED.
[2021-03-10 20:07] VITALS: BP 132/61
[2021-03-11 04:26] LABS: ALBUMIN 2.7 g/dL (3.4-5.0); CREATININE 1.2 mg/dL (0.7-1.3); MAGNESIUM 1.9 mg/dL (1.8-2.4); POTASSIUM 3.4 mmol/L (3.5-5.1); TOTAL BILIRUBIN 1.3 mg/dL (0.2-1.0); TOTAL PROTEIN 6.1 g/dL (6.4-8.2)
[2021-03-11 04:53] VITALS: BP 122/65
--- NOTE | 2021-03-11 06:00 | NUR ---
PT SLEPT MOST OF NIGHT. DENIES CHEST PAIN NOR SOA. PT IS IN [facility] FOR STRESS TEST THIS AM. NPO SINCE [place] PROGRESSING TOWARD GOALS
[2021-03-11 08:05] VITALS: BP 133/66
--- NOTE | 2021-03-11 08:54 | NUR ---
npo for nuclear stress test. up in chair, talking with family. SR-71, denies any cardiac signs/symptoms, room air.
--- NOTE | 2021-03-11 10:03 | NUR ---
Echo in progress. previously injected with nuclear stress test pending.
--- NOTE | 2021-03-11 10:15 | NUR ---
Dr. De La Fuente present to see pt. present.
--- NOTE | 2021-03-11 12:13 | 2DMMODE ---
[facility] [place] [address] 2 D/M-MODE ECHOCARDIOGRAM Name: ANTONIETACARMELO VILLARREAL Room #: 212-P ADM IN M.R.#: [id number] Admission: 03/09/21 Attend Phys: Radha De La Fuente Discharge: Date of : 45 Report #: [id number] THIS REPORT FOR: cc: Yves Gonzales MD, Christopher B. MD Santiago, Patrick MD [facility] ~ APPROVED REPORT Study performed: 03/11/2021 09:44:47 EXAM: Comprehensive 2D, Doppler, and color-flow Echocardiogram Room #: 212 Status: routine BSA: 2.21 HR: 72 bpm BP: 121/69 mmHg Rhythm: NSR Other Information Study Quality: Fair Risk Factors: Cardiac Risk Factors: DM, HTN Indications Diabetes Atrial Fibrillation Cardiomegaly Hypertension/HDD 2D Dimensions RVDd: 26.48 mm IVSd: 9.18 (7-11mm) LVOT Diam: 19.63 (18-24mm) LVDd: 53.87 mm PWd: 12.42 (7-11mm) Ascending Ao: 31.45 (22-36mm) LVDs: 42.10 (25-40mm) Left Atrium: 41.36 (27-40mm) Aortic Root: 30.36 mm Volumes Left Atrial Volume (Systole) Single Plane 4CH: 76.91 mL Single Plane 2CH: 29.80 mL Biplane LA Volume: 54.00 mL LA ESV Index: 24.00 mL/m2 Aortic Valve [facility] [place] [address] 2 D/M-MODE ECHOCARDIOGRAM Name: CARMELO FUNG Room #: 212-P [facility] IN M.R.#: [id number] Admission: 03/09/21 Attend Phys: Radha Haskins Discharge: Date of : 45 Report #: [id number] AoV Peak Micheal.: 0.91 m/s AO Peak Gr.: 3.72 mmHg LVOT Max P.58 mmHg LVOT Max V: 0.80 m/s MELINA Vmax: 2.66 cm2 Mitral Valve E/A Ratio: 2.4 MV Decel. Time: 181.50 ms MV E Max Micheal.: 0.84 m/s MV A Micheal.: 0.35 m/s MV PHT: 52.63 ms MVA (PHT): 2.90 cm2 IVRT: 55.36 ms Pulmonary Valve PV Peak Micheal.: 0.88 m/s PV Peak Gr.: 3.13 mmHg Pulmonary Vein P Vein S: 0.24 m/s P Vein A: 0.18 m/s P Vein D: 0.53 m/s P Vein A Dur.: 96.9 msec P Vein S/D Ratio: 0.45 Tricuspid Valve TR Peak Micheal.: 3.08 m/s RAP Estimate: 7.00 mmHg TR Peak Gr.: 37.82 mmHg RVSP: 45.00 mmHg Left Ventricle The left ventricle is normal size. There is normal LV segmental wall motion. There is normal left ventricular wall thickness. Left ventricular systolic function is normal. The left ventricular ejection fraction is within the normal range. LVEF is 50-55%. The left ventricular diastolic function is normal. Right Ventricle The right ventricle is normal size. The right ventricular systolic function is normal. Atria The left atrium size is normal. The right atrium size is normal. Aortic Valve The aortic valve is normal in structure. No aortic regurgitation is present. There is no aortic valvular stenosis. Mitral Valve [facility] [address] [place] [address] 2 D/M-MODE ECHOCARDIOGRAM Name: CARMELO FUNG Room #: 212-P [facility] IN M.R.#: [id number] Admission: 03/09/21 Attend Phys: Radha Haskins Discharge: Date of : 45 Report #: [id number] The mitral valve is normal in structure. Mild mitral regurgitation. No evidence of mitral valve stenosis. Tricuspid Valve The tricuspid valve is normal in structure. Mild tricuspid regurgitation. PAP 45 mmHg. Pulmonic Valve The pulmonary valve is normal in structure. Trace to mild pulmonic regurgitation. Great Vessels The aortic root is normal in size. IVC is normal in size and collapses >50% with inspiration. Pericardium There is no pericardial effusion. There is no pleural effusion. <Conclusion> Normal left ventricular size/wall thickness No obvious segmental wall motion abnormality Ejection fraction 55% Normal atrial size Color-flow Doppler study was performed of the aortic/mitral/tricuspid/pulmonary valve Normal aortic valve structure and function Mild mitral valve insufficiency Mild tricuspid valve insufficiency Pulmonary systolic pressure estimated 45 mmHg No pericardial effusion Normal aortic root size <ELECTRONICALLY SIGNED> By: Price Epstein MD, FACC 03/11/21 121 11 11 Price Epstein MD, FACC /INF
--- NOTE | 2021-03-11 15:05 | NUR ---
after return from nuclear stress test, when administering am medication and discussing each med with pt/, it was discovered pt being administered flecainaide. informed med dc'd after previous heart abalation. call placed to Saba Alvarez NP Cardiology and informed of situation.
[2021-03-11 15:45] VITALS: BP 123/66
[2021-03-11 17:43] VITALS: BP 123/66
[2021-03-11 18:06] LABS: HAV IgM AB (ANTI-HAV IgM) Negative (Negative); HEPATITIS B SURFACE AG Negative (Negative); HEPATITIS C VIRUS AB <0.1 (0.0-0.9)
--- NOTE | 2021-03-11 18:56 | NUR ---
Dr. Rodríguez present- pt to discharge. Included information for pt to follow up with Dr. Rodríguez in Aug 2021 and md office will call to set appt. Dr. De La Fuente's already completed discharge in computer. discharge instructions given, verbalized understanding, paperwork signed. iv out, waiting for son to pick him up.
[2021-03-11 19:05] VITALS: BP 123/66
== END 2021-03-11 19:04 | disposition home or self-care (01) | DRG 682 ==
LOC: ER 00:24 → EROBS 03:38 → 2N 03:38
PROVIDERS: Emergency Medicine; Nurse Practitioner Family; ADMIT Hospitalist; ATTEND Hospitalist
DX: I12.9 Hypertensive chronic kidney disease with stage 1 through stage 4 chronic kidney disease, or unspecified chronic kidney disease (principal); N17.0 Acute kidney failure with tubular necrosis; I42.9 Cardiomyopathy, unspecified; R07.89 Other chest pain; I48.91 Unspecified atrial fibrillation; K21.9 Gastro-esophageal reflux disease without esophagitis; E66.9 Obesity, unspecified; E78.5 Hyperlipidemia, unspecified; N18.30 Chronic kidney disease, stage 3 unspecified; N40.0 Benign prostatic hyperplasia without lower urinary tract symptoms; E11.22 Type 2 diabetes mellitus with diabetic chronic kidney disease; N28.9 Disorder of kidney and ureter, unspecified; D64.9 Anemia, unspecified; Z79.01 Long term (current) use of anticoagulants; Z85.46 Personal history of malignant neoplasm of prostate; Z92.3 Personal history of irradiation; Z68.36 Body mass index [BMI] 36.0-36.9, adult; Z90.49 Acquired absence of other specified parts of digestive tract; Z87.891 Personal history of nicotine dependence; Z79.82 Long term (current) use of aspirin; Z79.899 Other long term (current) drug therapy
CPT/HCPCS: 10081

== ENCOUNTER 2021-04-08 09:49 | Day surgery (SDC) | payer OTHER ==
[~2021-04-08] VITALS: Ht 172.7 cm; Wt 110.2 kg
--- NOTE | ~2021-04-08 | O ---
[facility] [place] [address] OPERATIVE REPORT Name: CARMELO FUNG Room #: [place] [facility] [place]#: [id number] Admission: 04/08/21 Attend Phys: Anuj Love MD Discharge: 04/08/21 Date of : 45 Report #: [id number] THIS REPORT FOR: cc: Yves Gonzales MD, Christopher B. MD Chu, Peter Y. MD ~ cc: Pelon Gonzales MD DATE OF SERVICE: 04/08/2021 PREOPERATIVE DIAGNOSIS: Cholecystitis with cholelithiasis. POSTOPERATIVE DIAGNOSIS: Cholecystitis with cholelithiasis. PROCEDURE PERFORMED: Laparoscopic cholecystectomy with cholangiogram. SURGEON: Anuj Love MD ANESTHESIA: General anesthesia. COMPLICATIONS: None. ESTIMATED BLOOD LOSS: 10 mL DESCRIPTION OF PROCEDURE: With the patient under general anesthesia, abdomen is prepped and draped in sterile fashion. Timeout was performed. Preoperative IV antibiotic was administered. 0.25% Marcaine was used to anesthetize the skin and subcutaneous tissue. There is thickening of the skin and subcutaneous tissue. 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 Fascia was isolated. The fascia was grasped with hemostat. Fascia was then opened under visualization, 0 Vicryl suture placed on the fascial edges for retraction. Veress needle was then placed through the peritoneum. Abdominal cavity was insufflated with CO2. CO2 was established without difficulty. After creating pneumoperitoneum, an 11 mm trocar was placed under visualization. No harm to underlying tissue. Evaluation of the abdomen showed abundant amount of fat in the upper part of the abdomen. Two 5 mm trocars were placed in right upper quadrant, another 5 mm trocar was placed in right epigastrium. The patient was placed in the reverse Trendelenburg position, right side tilted up. I was able to sweep the omental fat from the upper quadrant. The gallbladder was then identified. Mild oozing was identified in the omentum. This was cauterized. This was away from the area of the intestine. There was some adhesion of the duodenum to the gallbladder and these were able to be divided without difficulty. There was fair amount of fat over the cystic duct and artery. The cystic duct lymph node over this area was identified and noted to be somewhat inferiorly located. The tissue was free from the lymph node. There is a [address] [address] OPERATIVE REPORT Name: CARMELO FUNG Room #: DEP [facility]..#: [id number] Admission: 04/08/21 Attend Phys: Anuj Love MD Discharge: 04/08/21 Date of : 45 Report #: [id number] posterior artery that was identified adjacent to the cystic duct and posterior to cystic duct. This was isolated and divided with 2 clips proximally and one distally. The cystic duct was then able to be isolated. The cystic duct-gallbladder junction was identified. Cystic duct is mildly dilated. Opening was made in the cystic duct. Cholangiogram catheter was placed. The cholangiogram catheter was held with a clip. Fluoroscopic cholangiogram was obtained. The cholangiogram catheter was identified in the cystic duct. No harm to the common duct. There was still a fair amount of cystic duct between the cannulation site and the common duct. No filling defect identified in the common duct. The entire biliary tree filled out well. Spillage of dye into duodenum was identified. The cholangiogram catheter was then removed. The proximal cystic duct was then clipped x2. Cystic duct was then divided. The main cystic artery was then isolated, clipped x2 proximally, one distally and then divided. This was in its fairly normal position. Gallbladder was freed from the liver bed using cautery. Care was taken to cauterize the bleeding sites well. Hemostasis obtained. Gallbladder was free without difficulty. We placed in a specimen bag. The gallbladder was removed through the infraumbilical port. This was removed without difficulty. The gallbladder did contain multiple blackish stones. Some of them are fairly small and could easily be passing through. Gallbladder sent to pathology. Liver bed was checked, hemostasis obtained. Because the patient is on Plavix, Surgicel was placed over the area of the omentum and also the liver bed. Irrigation was performed and irrigation was aspirated out. CO2 was evacuated. Trocars were removed. The patient tolerated the procedure well. The infraumbilical fascia defect was closed with [id number] 0 Vicryl and interrupted 0 Vicryl stitch. Skin was irrigated. The skin was then closed with a 5-0 nylon in a subcuticular fashion. Steri-Strip, Band-Aids applied. The patient was taken to recovery room in good condition. By: [id number] Anuj Love MD /estefania
[~2021-04-08 09:49] MED LIST changes: +ATENOLOL 100MG100 MG PO; +PLAVIX 75 MG TA75 MG PO; +PROTONIX40 M2 PO
[2021-04-08 11:23] LABS: CALCIUM 7.8 mg/dL (8.5-10.1); CREATININE 1.4 mg/dL (0.7-1.3); POTASSIUM 4.6 mmol/L (3.5-5.1)
[2021-04-08 11:29] LABS: ALBUMIN 3.1 g/dL (3.4-5.0); TOTAL BILIRUBIN 0.5 mg/dL (0.2-1.0); TOTAL PROTEIN 5.9 g/dL (6.4-8.2)
[2021-04-08 11:41] VITALS: BP 144/76
[2021-04-08] MEDS ORDERED: HYDROCODON-ACE1 EAC7 PO (14:18)
[2021-04-08 16:40] VITALS: BP 131/70
[2021-04-08 18:17] VITALS: BP 131/70
--- NOTE | 2021-04-08 19:26 | NUR ---
RN WENT OVER ALL DISCHARGE TEACHING AND ALL QUESTIONS ANSWERED, IV OUT, AND WHEELED OUT IN WHEELCHAIR
--- NOTE | 2021-04-10 17:07 | PATH ---
[facility] [place] [address] PATHOLOGY RPT PROCEDURE Name: CARMELO FUNG [place] #: [place] [facility] [place] [id number] Admission: 04/08/21 Date of : 45 Discharge: 04/08/21 Report #: [id number] Path Case #: [id number] [facility] Accession Number: [id number] . 01 Material submitted: . gallbladder - GALLBLADDER . 01 Clinical history: . LAPAROSCOPIC CHOLECYSTECTOMY WITH GRAMS CHOLECYSTITIS . 02 Diagnosis: Gallbladder, cholecystectomy: - Mild chronic cholecystitis. - Cholelithiasis. (IUV/db; 04/10/2021) LBQ 04/10/2021 1437 Local . 02 Electronically signed: . Paola Pat MD, Pathologist NPI- [id number] . 01 Gross description: . Fixative: Formalin Labeled: Gallbladder Specimen received: Previously opened gallbladder Dimensions: 10.3 x 3.2 x 0.5 cm Serosa: Light sheriff Lymph node: None identified Mucosa: Velvety and bile-stained Average wall thickness: 0.1 cm Calculi: Fragments, black and friable Abnormalities: None identified . A1- Building Operator body, fundus, and the cystic duct margin. ([facility]; 04/09/2021) [facility] 04/09/2021 1058 Local . 02 Pathologist provided ICD-10: K80.10 . 02 CPT . 638498 Specimen Comment: A courtesy copy of this report has been sent to [phone] Specimen Comment: [phone] Specimen Comment: Report sent to / DR GUILLORY [address] [address] PATHOLOGY RPT PROCEDURE Name: CARMELO FUNGARD Room #: [place] [facility] [place].#: [id number] Admission: 04/08/21 Date of : 45 Discharge: 04/08/21 Report #: [id number] Path Case #: [id number] Performed at: [address], [place], [place] [id number] MD Tyler Smith MD Phone: [phone] Performed at: [address] [id number] MD Paola Pat MD Phone: [phone]
== END 2021-04-08 19:30 | disposition home or self-care (01) ==
LOC: OR 09:49 → 4S 16:20 → OR 19:30
PROVIDERS: ATTEND Surgery
DX: K80.10 Calculus of gallbladder with chronic cholecystitis without obstruction (principal); I10 Essential (primary) hypertension; I25.10 Atherosclerotic heart disease of native coronary artery without angina pectoris; E11.9 Type 2 diabetes mellitus without complications; E78.5 Hyperlipidemia, unspecified; I48.91 Unspecified atrial fibrillation; F32.9 Major depressive disorder, single episode, unspecified; K21.9 Gastro-esophageal reflux disease without esophagitis; Z98.890 Other specified postprocedural states; Z79.899 Other long term (current) drug therapy; Z85.828 Personal history of other malignant neoplasm of skin; Z85.46 Personal history of malignant neoplasm of prostate; Z87.891 Personal history of nicotine dependence
CPT/HCPCS: 10102; 50010; 50101; 50411; 50555; 51489; 51687; 52265; 53307; 53310; 53312; 55245; 55317; 56462; 56525; 56526; 58574; 58910; 62110; 62900; 65131; 70005

== ENCOUNTER → 2021-08-14 | Outpatient (CLI) | payer OTHER ==
[~2021-08-14] MED LIST changes: +HYDROCODON-ACE1 EAC7 PO
== END ==
LOC: SJCVC 11:36
PROVIDERS: ATTEND Internal Medicine Cardiovascular Disease
DX: I25.10 Atherosclerotic heart disease of native coronary artery without angina pectoris (principal); I10 Essential (primary) hypertension; E78.00 Pure hypercholesterolemia, unspecified; E11.9 Type 2 diabetes mellitus without complications; I48.91 Unspecified atrial fibrillation; I65.23 Occlusion and stenosis of bilateral carotid arteries; D68.69 Other thrombophilia; K21.9 Gastro-esophageal reflux disease without esophagitis; E78.5 Hyperlipidemia, unspecified; Z79.4 Long term (current) use of insulin; Z72.89 Other problems related to lifestyle; Z79.82 Long term (current) use of aspirin; Z79.899 Other long term (current) drug therapy

== ENCOUNTER → 2021-08-18 | Outpatient (CLI) | payer OTHER | LOC: SJCVCIMAG 10:35 | PROVIDERS: ATTEND Internal Medicine Cardiovascular Disease | DX: R22.41 Localized swelling, mass and lump, right lower limb (principal); M79.604 Pain in right leg ==